=== PATIENT | male | born 1965 | race Caucasian/White ===

== ENCOUNTER 2020-09-06 09:50 | Outpatient (CLI) | payer MEDICARE, MEDICAID ==
[~2020-09-06 09:50] MED LIST: ACET-868 PO; ALPR0.25 PO; AMIN30LI2 PO; APIX2.5T PO; ASCO-495 PO; BISA10SU11 RC; CARV25TA2 PO; CHOL100040 PO; CLON0.5T4 PO; DILT30TA14 PO; DIPH25CA51 PO; DOCU-141 PO; FERR325T23 PO; FOLI0.8T2 PO; HYDR-4075 PO; HYDR-4384 PO; IPRA12.9 IH; LANS30CA56 PO; LEVA15HF4 IH; LEVE500T9 PO; MUPI22OI2 TP; ONDA4TAB5 PO; PARO40TA4 PO; SENN-261 PO; SEVE0.8P PO; ZINC1CAP2 PO; ZOLP5TAB2 PO
[2020-09-07] MEDS ORDERED: CLON0.5T4 PO (16:08)
[2020-09-13] MEDS ORDERED: PANT40TA2 PO (13:37)
[2020-09-13] MEDS ORDERED: APIX5TAB PO (13:37)
[2020-09-13] MEDS ORDERED: DILT240C88 PO (13:37)
== END 2020-09-06 23:59 | disposition home or self-care (01) ==
LOC: US 09:50
PROVIDERS: ATTEND Internal Medicine Nephrology
DX: Z75.3 Unavailability and inaccessibility of health-care facilities (principal)
CPT/HCPCS: 76942-TC

== ENCOUNTER 2020-09-07 14:35 | Inpatient (IN) | payer MEDICARE, OTHER ==
[~2020-09-07] VITALS: Ht 182.9 cm; Wt 114.3 kg
--- NOTE | 2020-09-07 14:40 | NUR ---
[facility] C/O SOB. SYNCOPE PER EMS WHILE BEING TRANPORTED. BG 85. ON VENT. SCHEDULED FOR DIALYSIS. PATIENT A/OX4, ABLE TO MOUTH WORDS, HAS A TRACHE ON A MECHANICAL VENT AND TOLERATING CURRENT VENT SETTINGS. NO S/SX OF RESPIRATORY DISTRESS NOTED. PATIENT CONNECTED TO THE MAINSPRING TORQUE TESTER. VITALS STABLE. DR. CHILEL AT BEDSIDE FOR EVALUATION.
--- NOTE | 2020-09-07 14:42 | NUR ---
IV LINE ESTABLISHED, BLOOD DRAWN AND SENT TO LAB.
--- NOTE | 2020-09-07 14:50 | NUR ---
CALLED SERENA BHAKTA TO FAX CLINICAL INFORMATION OF PATIENT TO US.
[2020-09-07 15:22] LABS: BASOPHILS # (AUTO) 0.1 /CMM (0.0-0.2); BASOPHILS % (AUTO) 0.8 % (0.0-2.0); EOSINOPHILS % (AUTO) 10.5 % (0.0-6.0); HEMATOCRIT 29 % (39-51); HEMOGLOBIN 9.4 g/dL (13.5-17.5); LYMPHOCYTES # (AUTO) 0.4 /CMM (0.8-4.8); LYMPHOCYTES % (AUTO) 3.6 % (20.0-44.0); MEAN CORPUSCULAR HGB CONC 33 g/dl (31.0-36.0); MEAN CORPUSCULAR VOLUME 92 fL (80-96); MONOCYTES # (AUTO) 0.7 /CMM (0.1-1.30); MONOCYTES % (AUTO) 6.3 % (2.0-12.0); NEUTROPHILS % (AUTO) 78.8 % (43.0-81.0); PLATELET COUNT (AUTO) 186 /CMM (150-450); RED BLOOD CELL COUNT(AUTO) 3.13 MIL/uL (4.5-6.0); WHITE BLOOD COUNT (AUTO) 11.4 K/uL (4.3-11.0)
--- NOTE | 2020-09-07 15:43 | NUR ---
PT REFUSING TO DO COVID SWAB. OFFERED 4X. STILL KEPT REFUSING. AWARE.
[2020-09-07 15:54] LABS: ALANINE AMINOTRANSFERASE 16 U/L (12-78); ALBUMIN 2.4 g/dL (3.4-5.0); ALKALINE PHOSPHATASE 127 U/L (46-116); ASPARTATE AMINOTRANSFERASE 12 U/L (15-37); BILIRUBIN,DIRECT 0.3 mg/dL (0.0-0.2); BILIRUBIN,TOTAL 0.6 mg/dL (0.2-1.0); CALCIUM, SERUM 8.6 mg/dL (8.5-10.1); CARBON DIOXIDE 25 mmol/L (21-32); CHLORIDE 102 mmol/L (98-107); CREATININE 6.6 mg/dL (0.6-1.3); GLUCOSE 96 mg/dL (74-106); SODIUM SERUM 137 mmol/L (136-145); UREA NITROGEN, BLOOD 70 mg/dL (7-18)
[2020-09-07 15:58] LABS: POTASSIUM 6.3 mmol/L (3.5-5.1)
[2020-09-07 16:00] LABS: D-DIMER 2.53 mg/L(FEU (0.17-0.50)
[2020-09-07] MEDS ORDERED: CLON0.5T4 PO (16:08)
--- NOTE | 2020-09-07 16:28 | NUR ---
COVID SWAB DONE SENT TO LAB
--- NOTE | 2020-09-07 16:56 | NUR ---
AWAITING CALL FROM ADMITING MD.
--- NOTE | 2020-09-07 17:16 | NUR ---
/ RANJANA MADE AWARE OF K+ LEVEL OF 6.3.
[2020-09-07] MEDS ORDERED: ALBUTEROL FS 2.5 MG/3 ML VIAL.NEB ONE (17:18)
--- NOTE | 2020-09-07 17:20 | NUR ---
CALLED RT FOR BREATHING TX.
--- NOTE | 2020-09-07 17:29 | NUR ---
BED [id number]
[2020-09-07] MEDS ORDERED: IV NS 0.9% 500 ML BAG IV ONE (17:30)
[2020-09-07] MEDS ORDERED: ALBUTEROL FS 2.5 MG/0.5 ML VIAL.NEB NEB ONE (17:30)
--- NOTE | 2020-09-07 17:40 | NUR ---
REPORT GIVEN TO SHRUTI HARPER FOR IRMA.
[2020-09-07] MEDS ORDERED: ONDANSETRON HCL/PF 4 MG/2 ML VIAL IVP PRN (18:30)
[2020-09-07] MEDS ORDERED: HYDROCODONE/APAP 5/325MG TABLET PO PRN (18:30)
[2020-09-07] MEDS ORDERED: ACETAMINOPHEN 325 MG TABLET PO PRN ×2 (18:30→19:00)
[2020-09-07] MEDS ORDERED: ZOLPIDEM TARTRATE 5 MG TABLET PO PRN ×2 (18:30→19:00)
[2020-09-07] MEDS ORDERED: MAGNESIUM HYDROXIDE 30 ML UDC PO PRN ×2 (18:30→19:00)
[2020-09-07] MEDS ORDERED: SODIUM POLYSTYRENE SULFONATE 15 G/60 ML BOTTLE PO ONE (18:30)
[2020-09-07] MEDS ORDERED: Z GUARD REMEDY 2 OZ OINT TP PRN ×2 (18:30→19:00)
[2020-09-07] MEDS ORDERED: MAG HYDROX/AL HYDROX/SIMETH 30 ML UDC PO PRN ×2 (18:30→19:00)
--- NOTE | 2020-09-07 18:51 | NUR ---
PATIENT TRANSFERRED TO ROOM 203 VIA ACLS PROTOCOL. NO DISTRESS NOTED.
--- NOTE | 2020-09-07 19:30 | NUR ---
TELE/RN NOTES RECEIVED PATIENT IN BED RESTING. PATIENT IS ALERT AND ORIENTED X 3. [facility] WE[facility]. PATIENT HAS IV ACCESS ON RIGHT AC #18G, SL, AND HD CATH ON RIGHT CHEST. PATIENT IN NO SIGNS OF DISTRESS. SAFETY MEASURES ARE IN PLACE, BED IS LOCKED AND PLACED IN THE LOW POSITION, SIDE RAILS UP X 2. CALL LIGHT WITHIN REACH. WILL CONTINUE TO MONITOR THROUGH OUT SHIFT.
[2020-09-07 20:00] VITALS: BP 139/78
[2020-09-07] MEDS: SODIUM POLYSTYRENE SULFONATE 15 G/60 ML BOTTLE PO ONE ×2 (20:00→20:48)
[2020-09-07] MEDS: HYDROCODONE/APAP 5/325MG TABLET PO PRN (20:49)
--- NOTE | 2020-09-07 22:00 | NUR ---
TELE/RN NOTES PATIENT REFUSED TO TAKE KAYEXALATE. RISK AND BENEFITS HAVE BEEN EXPLAINED TO THE PATIENT. PATIENT STILL REFUSED. PATIENT IS IN STABLE CONDITION.
--- NOTE | 2020-09-07 22:15 | NUR ---
TELE/RN NOTES JHONY VANN RETURNED CALL. NOTIFIED OF PATIENT HAVING DVT OF LEFT SUB CLAVIAN VEIN, ORDERED FOR LOVENOX MAX DOSE, PHARMACY TO DOSE. PATIENT IS REQUESTING FOR IV PAIN MEDS, NO NEW IV PAIN MEDS ORDERED AT THIS TIME. ALL ORDERS CARRIED OUT.
[2020-09-07] MEDS ORDERED: ENOXAPARIN SODIUM 120 MG/0.8 ML DISP.SYRIN SQ SCH (22:30)
[2020-09-07] MEDS ORDERED: ENOXAPARIN SODIUM 60 MG/0.6 ML DISP.SYRIN SQ ONE ×2 (23:04→23:30)
[2020-09-08] VITALS (10 sets, daily range): BP systolic 97–188; BP diastolic 60–96
[2020-09-08] MEDS ORDERED: hydrALAZINE HCL 10 MG TABLET PO PRN (00:30)
[2020-09-08] MEDS ORDERED: diphenhydrAMINE HCL 25 MG CAPSULE PO PRN (00:30)
[2020-09-08] MEDS: DILTIAZEM HCL 30 MG TABLET PO SCH ×5 (05:00→21:10)
--- NOTE | 2020-09-08 05:45 | NUR ---
TELE/RN NOTES PATIENT STATED HE NEEDS PMV VALUE, DOES NOT HAVE HIS WITH HIM. NOTIFIES RT OF PMV VALUE. RT WILL PLACE ORDER AND GET VALUE WITH AVAILABLE IN THE MORNING.
--- NOTE | 2020-09-08 06:45 | NUR ---
TELE/RN CLOSING NOTES PATIENT IS IN BED RESTING. PATIENT IS ALERT AND ORIENTED X3-4. TELE READING AFIB UNCONTROLLED 126. PATIENT ON TRACH VENT, SHRLY. #6, AC 14, TIDAL 600, PEEP 5, FIO2 40%. PATIENT IS IN NO SIGNS OF DISTRESS. PATIENT HAS IV ACCESS ON AC #18G SL, INTACT, SL. ALL NEEDS HAVE BEEN MET DURING SHIFT. PATIENT REFUSED FULL SKIN BODY ASSESSMENT, AND REFUSED PHOTOS, ALL RISK AND BENEFITS HAVE BEEN EXPLAINED. PATIENT REFUSED BED BATH, AND LINEN CHANGE BY MULTIPLE NURSES. SAFETY MEASURES ARE IN PLACE, BED IS LOCKED AND PLACED IN THE LOW POSITION, SIDE RAILS UP X 2. CALL LIGHT IS WITHIN REACH. WILL ENDORSE CARE TO DAY SHIFT NURSE.
[2020-09-08] MEDS ORDERED: ALBUTEROL SULFATE 8 GM HFA.AER.AD IH PRN (07:30)
[2020-09-08] MEDS ORDERED: IPRATROPIUM BROMIDE 14 GM INHALER (or 12.9 GM) INH PRN (07:30)
[2020-09-08] MEDS ORDERED: PANTOPRAZOLE 40 MG TABLET.DR PO SCH ×2 (07:30)
--- NOTE | 2020-09-08 07:34 | NUR ---
QUICK TECHNICIAN NOTES PATIENT RECEIVED IN BED, RESTING COMFORTABLY. ALERT AND ORIENTED X 3. ON MARINE EQUIPMENT PRESERVATION INSPECTOR, A FLUTTER 100'S. TRACH IN PLACE, TOLERATING SETTINGS WELL, NO COMPLAINTS OF SOB, AND WITH EVEN NON-LABORED BREATHING. IV ACCESS INTACT AND PATENT. PATIENT REFUSING SKIN ASSESSMENT ENDORSE BY NIGHTSHIFT. WILL ATTEMPT SKIN ASSESSMENT. ENDORSE BY NIGHTSHIFT PATIENT REFUSED KAYEXALATE, PO. RE EDUCATED THE PATIENT THE IMPORTANCE PATIENT KEPT REFUSING. ISOLATION PRECAUTIONS IMPLEMENTED. SAFETY PRECAUTIONS IMPLEMENTED WITH BED LOCKED, BED IN THE LOWEST POSITIONS, BILATERAL SIDE RAILS UP, BED ALARM ON, AND CALL LIGHT WITHIN EASY REACH. WILL CONTINUE TO MONITOR PATIENT.
[2020-09-08] MEDS: CARVEDILOL 12.5 MG TABLET PO SCH ×3 (09:00→21:09)
[2020-09-08] MEDS ORDERED: PROSTAT (PYXIS) 30 ML UDC PO SCH (09:00)
[2020-09-08] MEDS ORDERED: APIXABAN 2.5 MG TABLET PO SCH (09:00)
--- NOTE | 2020-09-08 09:45 | NUR ---
SCHOOL BUS ATTENDANT NOTES DID A SWALLOW EVALUATION, ASPIRATION PRECAUTIONS IMPLEMENTED WITH RT AT BEDSIDE, AND PATIENT HAD NO DISCOMFORT OR TROUBLE SWALLOWING, INFORMED DR. KAMARA, HOSPITALIST AND ORDERED TO START PATIENT ON DIET. WILL CARRY OUT ORDER AND CONTINUE TO MONITOR PATIENT.
[2020-09-08] MEDS: CHOLECALCIFEROL 1,000 UNIT TABLET (VIT D3) PO SCH (09:46)
[2020-09-08] MEDS: ASCORBIC ACID 500 MG TABLET PO SCH ×2 (09:46→17:00)
[2020-09-08] MEDS: VIT B CMPLX 3/FA/VIT C/BIOTIN 1 TAB TABLET PO SCH (09:46)
[2020-09-08] MEDS: PANTOPRAZOLE 40 MG TABLET.DR PO SCH (09:46)
[2020-09-08] MEDS: PAROXETINE HCL 20 MG TABLET PO SCH (09:47)
[2020-09-08] MEDS: DOCUSATE SODIUM 100 MG CAPSULE PO SCH (09:47)
[2020-09-08] MEDS: LEVETIRACETAM (250 MG) 250 MG TABLET PO SCH ×3 (09:47→21:09)
[2020-09-08] MEDS: SEVELAMER CARBONATE 800 MG POWD.PACK PO SCH ×4 (09:47→17:37)
[2020-09-08] MEDS: clonazePAM 0.5 MG TABLET PO SCH ×3 (09:47→21:09)
--- NOTE | 2020-09-08 09:55 | NUR ---
SPORTS MANAGEMENT PROFESSOR NOTES HELD AND NON-ADMINISTERED BLOOD PRESSURE MEDICATION, DUE TO PATIENT BEING SCHEDULED FOR HEMODIALYSIS. WILL CONTINUE TO MONITOR PATIENT.
[2020-09-08] MEDS: ALBUTEROL SULFATE 8 GM HFA.AER.AD IH SCH ×2 (11:25→11:30)
[2020-09-08] MEDS: IPRATROPIUM BROMIDE 14 GM INHALER (or 12.9 GM) INH SCH ×2 (11:25→11:30)
[2020-09-08 11:36] LABS: BASOPHILS # (AUTO) 0.1 /CMM (0.0-0.2); BASOPHILS % (AUTO) 0.7 % (0.0-2.0); EOSINOPHILS % (AUTO) 15.5 % (0.0-6.0); HEMATOCRIT 25 % (39-51); LYMPHOCYTES # (AUTO) 0.4 /CMM (0.8-4.8); LYMPHOCYTES % (AUTO) 4.7 % (20.0-44.0); MEAN CORPUSCULAR HGB CONC 33 g/dl (31.0-36.0); MEAN CORPUSCULAR VOLUME 94 fL (80-96); MONOCYTES # (AUTO) 0.5 /CMM (0.1-1.30); NEUTROPHILS # (AUTO) 6.3 /CMM (1.8-8.9); NEUTROPHILS % (AUTO) 73.1 % (43.0-81.0); PLATELET COUNT (AUTO) 153 /CMM (150-450); RED BLOOD CELL COUNT(AUTO) 2.63 MIL/uL (4.5-6.0); WHITE BLOOD COUNT (AUTO) 8.7 K/uL (4.3-11.0)
[2020-09-08 11:42] LABS: CALCIUM, SERUM 7.9 mg/dL (8.5-10.1); CREATININE 6.8 mg/dL (0.6-1.3); POTASSIUM 5.9 mmol/L (3.5-5.1)
[2020-09-08 11:48] LABS: ALBUMIN 2.1 g/dL (3.4-5.0); BILIRUBIN,TOTAL 0.5 mg/dL (0.2-1.0); TOTAL PROTEIN, SERUM 5.9 g/dL (6.4-8.2)
[2020-09-08] MEDS ORDERED: EPOETIN ALFA (10,000 UNIT) 10,000 UNIT/ML VIAL IV ONE (12:30)
[2020-09-08] MEDS: HYDROCODONE/APAP 5/325MG TABLET PO PRN (13:25)
--- NOTE | 2020-09-08 13:32 | NUR ---
CLINICAL CYTOGENETICS DIRECTOR NOTES PATIENT REFUSED SKIN ASSESSMENT AND REFUSING TO BE CLEAN, STATING HE JUST WANTS TO BE LEFT TO REST. WILL CONTINUE TO MONITOR.
--- NOTE | 2020-09-08 13:40 | NUR ---
FIELDWORK COORDINATOR NOTES PATIENT STATING 9/10 CHRONIC BACK PAIN, REPOSITIONED AND PATIENT REQUESTING PAIN MEDICATION. OFFERED PRN NORCO, 5-325mg PO, TOOK OUT MEDICATION FROM PYXIS, AND CRUSHED MEDICATION, WENT TO PATIENT ROOM AND PATIENT REFUSING STATING HE WANTS DILAUDID AND THAT'S THE ONLY THING HE TAKES FOR PAIN. INFORMED DR. KAMARA, STATES NORCO 5-325mg PRN IS ORDERED AND WILL CONSULT PAIN MANAGEMENT DRDylan HAD ANOTHER RN WITNESS WASTING NORCO 5-325mg. AT THIS TIME WILL CONTINUE TO MONITOR PATIENT.
--- NOTE | 2020-09-08 14:00 | NUR ---
VP GENETIC NOTES PATIENT REFUSED CARDIZEM 90mg PO and RENVELA 2,400mg PO, EXPLAINED TO THE PATIENT THE RISKS AND BENEFITS OF NOT TAKING MEDICATIONS AND EDUCATED THE PATIENT MULTIPLE TIMES, PATIENT KEPT REFUSING AND USING PROFANITY STATING HE DOES NOT WANT TO TAKE ANYTHING. WILL CONTINUE TO MONITOR PATIENT.
--- NOTE | 2020-09-08 14:30 | NUR ---
PIPELINE DISPATCHER NOTES TRY TO CLEAN PATIENT AGAIN WITH 2 CNAS, AND PATIENT KEPT CURSING STATING HE WANTS TO BE LEFT ALONE TO REST AND NOT TO BE CLEAN.
--- NOTE | 2020-09-08 15:45 | NUR ---
PAYROLL OFFICER NOTES TRANSFERRED PATIENT TO [facility] TO CLEAN UNIT ROOM 313. PATIENT TRANSFERRED VIA BED, ALERT AND ORIENTED X 3. TOLERATING MECHANICAL SETTINGS, WITH NO SIGNS OF RESPIRATORY DISTRESS AND NO SOB NOTED. GAVE REPORT TO MEREDITH LOPEZ TO CONTINUE PLAN OF CARE.
[2020-09-08] MEDS: ACETYLCYSTEINE 10% SOLN 400 MG/4 ML VIAL NEB SCH ×2 (15:58→23:17)
[2020-09-08] MEDS: IPRATROPIUM NEB FS 0.5 MG/2.5 ML AMPUL.NEB NEB SCH ×3 (15:58→23:17)
[2020-09-08] MEDS ORDERED: HEPARIN INFUSION/D5W 500 ML IV PRN (16:00)
--- NOTE | 2020-09-08 16:00 | NUR ---
rn notes received pt awake and alert; denies pain or any discomfort . trach in place; vent settings well tolerated. pt refused care at this time. explained plan of care, safety ensured
--- NOTE | 2020-09-08 16:45 | NUR ---
rn notes pt awake in bed. heparin order explained to the pt as ordered by Dr Jensen; pt said "dont give me anything". Dr Jensen aware re pts noncompliance. teachings enforced but pt angrily refused. refused lab draw for PTT and troponin.
[2020-09-08] MEDS: PROSOURCE / PROSTAT (PYXIS) 30 ML UDC PO SCH (17:00)
--- NOTE | 2020-09-08 19:30 | NUR ---
RN OPENING NOTES Received patient a/o x4, awake on bed, capable of verbal communication. Explained to patient he is due for Heparin drip and due to PTT. Informed patient of the risk of bleeding and importance of doing PTT. Pt verbalized understanding but insisted to refused the medication and blood draw. Will reoffer again later. Vent settings noted, pt tolerating well, no SOB/respiratory distress noted. Kept on bed clean, dry and comfortable. On fall and aspiration precautions. Will continue to monitor accordingly.
--- NOTE | 2020-09-08 19:30 | NUR ---
rn closing notes pt awake , no distress. heparin order endorsed to next shift rn, pt still refusing. safety ensured. endorsed in stable condition
--- NOTE | 2020-09-08 19:49 | NUR ---
IN-LINE TREATMENT UNABLE TO GIVE DUE TO HR ABOVE NORMAL LIMITS; RN NOTIFIED. Addendum: 09/08/20 at 1950 by LENA SANTIAGO RT Amended: Links added.
--- NOTE | 2020-09-08 20:30 | NUR ---
RN NOTES HR noted 130s. A-fib on monitor. Offered Cardizem at this time, explained the medication indication. Pt verbalized understanding but wants to take meds at bedtime. Patient agreed to take meds 2130. Will continue to monitor.
[2020-09-08] MEDS: SENNOSIDES 8.6 MG TABLET PO SCH ×2 (21:10→22:00)
--- NOTE | 2020-09-08 21:34 | NUR ---
RN NOTES Pt asleep, easily awaken on bed. Informed patient it's time for medications as agreed upon earlier. Per patient "not right now." Explained and re-offered Heparin, patient refused. Afib on monitor, HR 131. Will continue to monitor.
--- NOTE | 2020-09-08 22:26 | NUR ---
RN NOTES Offered warm blanket to patient. Advised for repositioning, pt refused. Lowered HOB per patient request. Pt still refusing any meds at this time.
--- NOTE | 2020-09-08 23:27 | NUR ---
RN NOTES Spoke to pt's brother. Update given. Brother aware of pt's rude behavior and refusing all medications. Per brother he will talk to the patient.
[2020-09-09] MEDS: IPRATROPIUM NEB FS 0.5 MG/2.5 ML AMPUL.NEB NEB SCH ×6 (03:11→23:30)
[2020-09-09 04:00] VITALS: BP 153/90
[2020-09-09] MEDS: DILTIAZEM HCL 30 MG TABLET PO SCH (04:13)
[2020-09-09 04:46] LABS: BASOPHILS # (AUTO) 0.1 /CMM (0.0-0.2); BASOPHILS % (AUTO) 1.3 % (0.0-2.0); EOSINOPHILS % (AUTO) 19.2 % (0.0-6.0); HEMATOCRIT 27 % (39-51); HEMOGLOBIN 8.8 g/dL (13.5-17.5); LYMPHOCYTES # (AUTO) 0.3 /CMM (0.8-4.8); LYMPHOCYTES % (AUTO) 3.3 % (20.0-44.0); MEAN CORPUSCULAR HGB CONC 33 g/dl (31.0-36.0); MEAN CORPUSCULAR VOLUME 93 fL (80-96); MONOCYTES # (AUTO) 0.5 /CMM (0.1-1.30); MONOCYTES % (AUTO) 5.7 % (2.0-12.0); NEUTROPHILS # (AUTO) 5.8 /CMM (1.8-8.9); NEUTROPHILS % (AUTO) 70.5 % (43.0-81.0); PLATELET COUNT (AUTO) 180 /CMM (150-450); RED BLOOD CELL COUNT(AUTO) 2.87 MIL/uL (4.5-6.0); WHITE BLOOD COUNT (AUTO) 8.2 K/uL (4.3-11.0)
--- NOTE | 2020-09-09 06:04 | NUR ---
PATIENT RECEIVED ON TRACH TO VENT WITH SETTINGS OF AC 14, 600 Vt, 40%, +5, ALERT, ORIENTED, AND STABLE WITH NO DISTRESS/SOB NOTED. SUCTIONED WITH LAVAGE FOR MINIMAL, THICK, YELLOW-CREAM SECRETIONS. UNABLE TO GIVE IN-LINE TREATMENTS DUE TO HR ABOVE NORMAL LIMITS. AMBU BAG AT BEDSIDE. VENT AND PULSE OXIMETER ALARMS AUDIBLE AND VISIBLE. Addendum: 09/09/20 at 0606 by LENA SANTIAGO RT Amended: Links added.
--- NOTE | 2020-09-09 07:21 | NUR ---
RN CLOSING NOTES Pt noted controlled A-Fib on monitor. With current vent settings noted, no respiratory distress noted. Started on Heparin drip 1800unit/hr per protocol. Pt took 5am ordered meds. All nursing needs attended. Kept on bed clean, dry and comfortable. Endorsed.
[2020-09-09] MEDS: ACETYLCYSTEINE 10% SOLN 400 MG/4 ML VIAL NEB SCH ×3 (07:53→23:30)
[2020-09-09 08:00] VITALS: BP 158/82
--- NOTE | 2020-09-09 08:00 | NUR ---
RN NOTES MISSION ANALYST NOTES RECEIVED PATIENT IN BED, A/OX3 , ABLE TO TALK, AND EAT, ON GRE TUTOR, A FLUTTER 108'S. TRACH IN PLACE, TOLERATING SETTINGS WELL, NO COMPLAINTS OF SOB, NON-LABORED BREATHING. IV ACCESS INTACT AND PATENT ON RIGHT ACAREA PATIENT GETTING HEPARIN DRIP 1800U. SKIN ASSESSMENT DONE EDEMA ON LEFT ARM, ELEVATED WITH PILLOW, AND DEPENDENT UPPER THIGHS, AND SACRAL AREAS EDEMA, TOTAL ASSIST TURN AND REPOSTIONQ2 HR. DRY SCALY SKIN GENERALIZED, DISTENDED ABDOMEN. ACTIVE BOWEL SOUNDS FOUR QUADRANT OF ABDOMEN. NO BOWEL MOVEMENT. PATIENT REFUSED PAIN, ADMINISTERED SCHEDULED MEDICATION. RIGHT UPPERCHEST HS CATHETER INTACT. SAFETY PRECAUTIONS IMPLEMENTED WITH BED LOCKED, BED IN THE LOWEST POSITIONS, BILATERAL SIDE RAILS UP, BED ALARM ON, AND CALL LIGHT WITHIN EASY REACH. WILL CONTINUE TO MONITOR PATIENT.
--- NOTE | 2020-09-09 08:40 | NUR ---
RN NOTES PATIENT GETTING HD AT THIS TIME. V/S STABLE. WILL MONITORING.
[2020-09-09] MEDS: DOCUSATE SODIUM 100 MG CAPSULE PO SCH ×2 (09:00→10:04)
[2020-09-09] MEDS: PROSOURCE / PROSTAT (PYXIS) 30 ML UDC PO SCH ×2 (09:00→17:00)
[2020-09-09] MEDS: LEVETIRACETAM (250 MG) 250 MG TABLET PO SCH ×2 (10:02→21:05)
[2020-09-09] MEDS: SEVELAMER CARBONATE 800 MG POWD.PACK PO SCH ×4 (10:02→18:00)
[2020-09-09] MEDS: VIT B CMPLX 3/FA/VIT C/BIOTIN 1 TAB TABLET PO SCH (10:03)
[2020-09-09] MEDS: CARVEDILOL 12.5 MG TABLET PO SCH ×2 (10:03→21:06)
[2020-09-09] MEDS: clonazePAM 0.5 MG TABLET PO SCH ×2 (10:04→21:05)
[2020-09-09] MEDS: PAROXETINE HCL 20 MG TABLET PO SCH (10:04)
[2020-09-09] MEDS: CHOLECALCIFEROL 1,000 UNIT TABLET (VIT D3) PO SCH (10:04)
[2020-09-09] MEDS: ASCORBIC ACID 500 MG TABLET PO SCH ×2 (10:04→18:19)
[2020-09-09] MEDS: PANTOPRAZOLE 40 MG TABLET.DR PO SCH (10:05)
--- NOTE | 2020-09-09 10:08 | NUR ---
RN NOTES FINISHED HD AT THIS TIME, OUTPUT WAS 3000ML, ADMINISTERED SCHEDULED MEDICATION, INFUSING HEPARIN DRIP 1800.
[2020-09-09 12:00] VITALS: BP 137/80
--- NOTE | 2020-09-09 12:06 | NUR ---
RN NOTES SEEN PATIENT BY HOSPITALIST, EXPLAINED PATIENT NEED PTT, BECAUSE OF HAS DVT, AND NEED MEDICATION. PATIENT AGREES AFTER TAKING MOTHER FOR BLOOD WITHDRAW FROM LEG. CALLED LABORATORY FOR BLOOD WITHDRAW.
--- NOTE | 2020-09-09 12:26 | NUR ---
Please call Radiology ext. [phone] Chest W/IV Contrast before Dialysis is performed.
[2020-09-09] MEDS: DILTIAZEM HCL CD 240 MG PO SCH (13:44)
--- NOTE | 2020-09-09 13:58 | NUR ---
rn notes seen patient by vascular Md Dr. Brand, patient will getting Eliquis instead of heparin iv drip. will continued monitoring.
[2020-09-09] MEDS: APIXABAN 5 MG TABLET PO SCH ×2 (14:36→18:21)
--- NOTE | 2020-09-09 15:08 | NUR ---
PER RN TO DO CT SCAN TOMORROW 09/10/20 IN THE MORNING AT 0800 BEFORE PT SCHEDULED DIALYSIS
[2020-09-09 16:00] VITALS: BP 130/77
--- NOTE | 2020-09-09 18:00 | NUR ---
RN NOTES PATIENT STABLE REFUSED TURN AND REPOSITIONING, PATIENT HAS OPEN WOUND ON BILATERAL BUTTOCKS, APPLIED Z-GUARD, AND MEPILEX, PICTURE TAKEN. EDUCATED PATIENT ABOUT WOUND, AND RISKS. PATIENT STATE "I DO NOT CARE". WOUND CONSULT TRIGGERED, REFUSED PAIN. DUE MEDICATION ADMINISTERED. CALL LIGHT WITHIN TO REACH. ELEVATED LEFT ARM,USING PILLOW, CALL LIGHT WITHIN TO REACH. ENDORSED ONCOMING NURSE FOLLOW PLAN OF CARE.
--- NOTE | 2020-09-09 19:34 | NUR ---
STILE RIPSAW OPERATOR OPEN NOTES PT IS WATCHING TV IN BED. A[facility]O X3. [facility], NO SOB/ ACUTE RESPIRATORY DISTRESS NOTED. PT SUCTIONED. IV IN R AC #18G IS PATENT AND INTACT. PT DENIES ANY PAIN AT THE MOMENT. BED IS IN LOWEST LOCKED POSITION WITH SIDE RAILS UP X3, SEMI FOWLERS. CALL LIGHT IS WITHIN REACH. WILL CONTINUE TO MONITOR.
[2020-09-09 20:00] VITALS: BP 125/70
[2020-09-09] MEDS: SENNOSIDES 8.6 MG TABLET PO SCH (21:05)
--- NOTE | 2020-09-09 22:32 | NUR ---
RN CARDIAC NOTES PT REFUSES TO HAVE PICTURES TAKEN OF WOUNDS. EXPLAINED THE BENEFITS HOWEVER PT STILL REFUSES STATING, "I DON'T WANT TO HAVE THEM TAKEN."
--- NOTE | 2020-09-09 23:00 | NUR ---
CHIEF LEARNING OFFICER NOTES PT SIGNED CONSENT FORM FOR CT SCAN ON CHEST WITH CONTRAST. PT ALSO STATED HE IS NOT ALLERGIC TO SHELLFISH/ IODINE.
[2020-09-10 04:00] VITALS: BP 129/69
[2020-09-10] MEDS: IPRATROPIUM NEB FS 0.5 MG/2.5 ML AMPUL.NEB NEB SCH ×6 (04:09→23:47)
--- NOTE | 2020-09-10 05:46 | NUR ---
REGISTRATION OFFICER NOTES PT REFUSES TO BE CHANGED. STATES THAT HE WILL LET US KNOW IF/ WHEN HE'S READY TO HAVE A NEW GOWN/ NEW SHEETS.
[2020-09-10 06:29] LABS: BASOPHILS # (AUTO) 0.1 /CMM (0.0-0.2); EOSINOPHILS % (AUTO) 12.8 % (0.0-6.0); HEMATOCRIT 23 % (39-51); HEMOGLOBIN 7.7 g/dL (13.5-17.5); LYMPHOCYTES # (AUTO) 0.4 /CMM (0.8-4.8); LYMPHOCYTES % (AUTO) 4.4 % (20.0-44.0); MEAN CORPUSCULAR HGB CONC 33 g/dl (31.0-36.0); MEAN CORPUSCULAR VOLUME 93 fL (80-96); MONOCYTES # (AUTO) 0.6 /CMM (0.1-1.30); MONOCYTES % (AUTO) 6.2 % (2.0-12.0); NEUTROPHILS % (AUTO) 75.6 % (43.0-81.0); PLATELET COUNT (AUTO) 189 /CMM (150-450); RED BLOOD CELL COUNT(AUTO) 2.49 MIL/uL (4.5-6.0); WHITE BLOOD COUNT (AUTO) 9.2 K/uL (4.3-11.0)
[2020-09-10 06:46] LABS: CALCIUM, SERUM 8.2 mg/dL (8.5-10.1); CREATININE 6.4 mg/dL (0.6-1.3); MAGNESIUM 2.2 mg/dL (1.8-2.4); PHOSPHORUS 7.4 mg/dL (2.5-4.9); POTASSIUM 5.3 mmol/L (3.5-5.1)
[2020-09-10 06:52] LABS: IRON, SERUM 96 ug/dl (50-175); TOTAL IRON BINDING CAPACITY 123 ug/dl (250-450)
--- NOTE | 2020-09-10 06:54 | NUR ---
PRODUCTION SUPERVISOR OFF SHIFT CLOSE NOTES PATIENT IS WATCHING TV IN BED. A/O X3-4. ON [facility] VENT TOLERATING WELL, NO SOB/ ACUTE RESPIRATORY DISTRESS NOTED. VENT SETTINGS: AC 14, TV 600, FiO2 40%, PEEP 5, SHILEY #6. TELE MONITOR READING A FLUTTER, 121. IV IN R AC #18G IS PATENT AND INTACT. PT DENIES ANY PAIN AT THE MOMENT. ALL DUE MEDS GIVEN. CONSENT SIGNED. BED IS IN LOWEST LOCKED POSITION WITH SIDE RAILS UP X3, SEMI FOWLERS. CALL LIGHT IS WITHIN REACH. WILL ENDORSE TO AM NURSE.
[2020-09-10 07:30] LABS: FERRITIN 1488 ng/mL (8-388)
[2020-09-10] MEDS: ACETYLCYSTEINE 10% SOLN 400 MG/4 ML VIAL NEB SCH ×3 (07:45→23:47)
[2020-09-10 08:00] VITALS: BP 138/68
[2020-09-10 08:07] LABS: IMMUNOGLOBULIN A, SERUM 342 mg/dL (90-386); IMMUNOGLOBULIN G, SERUM 1445 mg/dL (603-1613); IMMUNOGLOBULIN M, SERUM 85 mg/dL (20-172)
[2020-09-10] MEDS ORDERED: CT SWABBABLE VALVE TRANS SET 1 EA INFUS.SET MC ONE (08:22)
[2020-09-10] MEDS ORDERED: IOHEXOL-300 100 ML VIAL IV ONE (08:22)
[2020-09-10] MEDS ORDERED: IV NS 0.9% 250 ML IV ONE (08:22)
--- NOTE | 2020-09-10 08:39 | NUR ---
WHITE WASHER PILER NOTES RECEIVED PATIENT IN BED JUST CAME BACK FROM CT , HEAD OF BED ELEVATED , ON MECHANICAL VENTILATOR SET ON ORDERED SETTING, PATIENT TOLERATING WELL ALERT ORIENTED X 3. NO ACUTE DISTRESS NOTED. BREATHING UNLABORED. NO SOB NOTED. IV ACCESS PATENT AND INTACT, NO REDNESS NO SWELLING , NO BLEEDING NOTED. DIALYSIS ACCESS INTACT WITH DRESSING. SAFETY MEASURES IN PLACE. CALL LIGHT WITHIN REACH. WILL CONTINUE TO MONITOR ACCORDINGLY.
[2020-09-10] MEDS: PANTOPRAZOLE 40 MG TABLET.DR PO SCH (08:53)
[2020-09-10] MEDS: DOCUSATE SODIUM 100 MG CAPSULE PO SCH (09:00)
[2020-09-10] MEDS: SEVELAMER CARBONATE 800 MG POWD.PACK PO SCH ×3 (09:19→18:00)
[2020-09-10] MEDS: LEVETIRACETAM (250 MG) 250 MG TABLET PO SCH ×2 (09:47→20:20)
[2020-09-10] MEDS: DILTIAZEM HCL CD 240 MG PO SCH (09:47)
[2020-09-10] MEDS: CARVEDILOL 12.5 MG TABLET PO SCH ×2 (09:47→20:20)
[2020-09-10] MEDS: clonazePAM 0.5 MG TABLET PO SCH ×2 (09:48→21:33)
[2020-09-10] MEDS: VIT B CMPLX 3/FA/VIT C/BIOTIN 1 TAB TABLET PO SCH (09:48)
[2020-09-10] MEDS: ASCORBIC ACID 500 MG TABLET PO SCH ×2 (09:48→17:12)
[2020-09-10] MEDS: PAROXETINE HCL 20 MG TABLET PO SCH (09:48)
[2020-09-10] MEDS: PROSOURCE / PROSTAT (PYXIS) 30 ML UDC PO SCH ×2 (09:49→17:13)
[2020-09-10] MEDS: CHOLECALCIFEROL 1,000 UNIT TABLET (VIT D3) PO SCH (09:55)
[2020-09-10] MEDS: APIXABAN 5 MG TABLET PO SCH ×2 (09:59→17:00)
--- NOTE | 2020-09-10 09:59 | NUR ---
WEAPONS SPECIALIST NOTES HELD ELIQUIS DUE TO HGB 7.7, NOTIFIED DR HIRSCH MADE AWARE. SUPERVISOR DAIRY SANITATION NANETTE FROM DR HUANG OFFICE PRESENT ON THE FLOOR MADE AWARE ALSO SHE SAID SHE WILL ORDER STOOL OB AND LOOK INTO PATIENT CHART. PATIENT WAS NON COMPLIANT WITH HEPARIN DRIP DESPITE OF EXPLANATION OF RISKS AND BENEFITS, HE REFUSED TO BE ON HEPARIN DRIP.
--- NOTE | 2020-09-10 10:47 | NUR ---
TELEMETRY PATIENT SEEN AND EVALUATED BY DR HIRSCH AND ASHLEY PERLA FROM DR HUANG, PATIENT REFUSED HERAPIN DRIP DESPITE OF EXPLANATION OF RISKS AND BENEFITS.
--- NOTE | 2020-09-10 11:53 | NUR ---
WOUND CARE CONSULT: PT ADAMANTLY REFUSED SKIN ASSESSMENT. REVIEWED CHART, NURSING DOCUMENTATION AND PHOTOS WHICH INDICATE LEFT ARM WEEPING EDEMA, SACRAL SCARRING, RT BUTTOCK WOUND (AT LEAST PARTIAL THICKNESS) AND DISCOLORATION/DRY SCABS TO LOWER LEGS, PRESENT ON ADMISSION. RECOMMENDATIONS MADE FOR SKIN PROTECTION AND WOUND CARE. DISCUSSED WITH NURSING STAFF. MD IN AGREEMENT WITH PLAN OF CARE.
[2020-09-10 12:00] VITALS: BP 150/90
[2020-09-10] MEDS ORDERED: HYDROGEL DRESSING 90 GM TUBE TP PRN (12:00)
--- NOTE | 2020-09-10 12:10 | NUR ---
INCOME TAX ADVISOR NOTES DIALYSIS STARTED BY DIALYSIS NURSE ROSA, VITALS SIGNS STABLE WITHIN NORMAL LIMITS. ALERT ORIENTED X 3. NO ACUTE DISTRESS NOTED. BREATHING UNLABORED. WILL CONTINUE TO MONITOR.
--- NOTE | 2020-09-10 13:45 | NUR ---
DIGITAL WATCH ASSEMBLER NOTES DIALYSIS DONE BY DIALYSIS NURSE ROSA, 2 LITERS OUT. VITALS SIGNS STABLE WITHIN NORMAL LIMITS. ALERT ORIENTED X 3. NO ACUTE DISTRESS NOTED. BREATHING UNLABORED. WILL CONTINUE TO MONITOR.
[2020-09-10] MEDS: HYDROGEL DRESSING 90 GM TUBE TP SCH (14:31)
[2020-09-10 16:00] VITALS: BP 115/56
[2020-09-10 16:25] LABS: *SPE A/G RATIO 0.8 (0.7-1.7); *SPE ALBUMIN 2.7 g/dL (2.9-4.4); *SPE ALPHA-1-GLOBULIN 0.3 g/dL (0.0-0.4); *SPE ALPHA-2-GLOBULIN 0.5 g/dL (0.4-1.0); *SPE BETA GLOBULIN 0.8 g/dL (0.7-1.3); *SPE GLOBULIN, TOTAL 3.2 g/dL (2.2-3.9); *SPE M-SPIKE Not Observed g/dL (Not Observed); *SPEGAMMA GLOBULIN 1.5 g/dL (0.4-1.8)
--- NOTE | 2020-09-10 18:17 | NUR ---
BRIDGE OPENER NOTES PATIENT REFUSED TO TAKE RENVELA DESPITE OF EXPLANATION OF RISKS AND BENEFITS, VERBALIZED UNDERSTANDING
--- NOTE | 2020-09-10 19:00 | NUR ---
INTEGRATION MANAGER NOTES PATIENT IN BED ALERT ORIENTED X 3. HEAD OF BED ELEVATED , ON MECHANICAL VENTILATOR SET ON ORDERED SETTING, PATIENT TOLERATING WELL. NO ACUTE DISTRESS NOTED. BREATHING UNLABORED. NO SOB NOTED. IV ACCESS PATENT AND INTACT, NO REDNESS NO SWELLING , NO BLEEDING NOTED. DIALYSIS ACCESS INTACT WITH DRESSING.. PATIENT REFUSED TO EAT LUNCH FROM LUNCH TRAY AND SAID HE ORDERED DOMINOS, REFUSED CARE, REFUSED RENVELA IN THE AFTERNOON, RISKS AND AND BENEFITS EXPLAINED TO THE PATIENT BUT STRONGLY REFUSING AND SAID HE WANTS TO EAT WHAT HE ORDERED , DON'T WANT ADLS CARE OR BE CHANGED. SAFETY MEASURES IN PLACE. CALL LIGHT WITHIN REACH. WILL CONTINUE TO MONITOR ACCORDINGLY.
--- NOTE | 2020-09-10 19:30 | NUR ---
RURAL CARRIER OPENING NOTE RECEIVED PATIENT IN BED. A/OX3. ON MECHANICAL VENTILATOR: TWILA #6, AC 14, TV 600 FIO2 40% PEEP 5. IN NO RESP DISTRESS. C/O BACK PAIN, OFFERED PAIN MEDICATION, PATIENT REFUSED. EXTERNAL TELE MONITOR READS AFLUTTER 140S. IN NO APPARENT DISTRESS. WILL INFORM MD ABOUT RHYTHM. BED IS LOW AND LOCKED, HOB ELEVATED IN SEMI FOWLERS, SIDE RIALS UP X2. CALL LIGHT WITHIN REACH. WILL CONTINUE TO MONITOR.
[2020-09-10 20:00] VITALS: BP 131/70
--- NOTE | 2020-09-10 20:09 | NUR ---
TRAFFIC SIGNAL TECHNICIAN NOTE CALLED DR. BOOKER TO INFORM THAT PATIENT IS 140'S AFLUTTER SINCE 1200. ADMISSION HR IS 110'S A FLUTTER. ALSO INFORMED THAT PATIENT IS ABOUT TO RECEIVE COREG 37.5 MG SCHEDULED. MD STATED GIVE THE COREG AND WATCH THE HR. ANYTHING 130-140S ISN'T OK. ORDER READ BACK, NOTED AND CARRIED OUT. WILL CONTINUE TO MONITOR.
--- NOTE | 2020-09-10 20:35 | NUR ---
telephone sales representative note informed patient his temperature is 99.1 if he would like any tylenol. patient stated no. asked if he would like AC turned on, patient stated no. will continue to monitor.
[2020-09-10] MEDS: SENNOSIDES 8.6 MG TABLET PO SCH (21:33)
[2020-09-11] VITALS: BP 136/69
--- NOTE | 2020-09-11 00:24 | NUR ---
telegraph office telephone clerk note informed dr. mancilla patients hr is still ranging from 120's to 140s. telephone order cardizem 10mg iv push one time now. order read back, noted and carried out. will continue to monitor.
[2020-09-11] MEDS ORDERED: DILTIAZEM HCL 25 MG IV IVP ONE (01:00)
--- NOTE | 2020-09-11 02:03 | NUR ---
television tube inspector note informed dr. mancilla that patients hr is now in the 110s. also informed MD that patient is complaining of pain 10/10 in back. does not want the norco 5 as prescribed PRN d/t doesnt want to become constipated, request iv medication. MD stated there will be same outcome with iv medication and there is no indication for iv medication. patient also takes norco 5 at assisted. will inform patient. informed patient. offered ice pack or heating pack for pain, refused, offered norco5 again, refused, offered to reposition, refused. will continue to monitor.
[2020-09-11 04:00] VITALS: BP 151/85
[2020-09-11] MEDS: IPRATROPIUM NEB FS 0.5 MG/2.5 ML AMPUL.NEB NEB SCH ×6 (04:17→23:37)
[2020-09-11 07:03] LABS: BASOPHILS # (AUTO) 0.1 /CMM (0.0-0.2); EOSINOPHILS % (AUTO) 16.5 % (0.0-6.0); HEMATOCRIT 22 % (39-51); HEMOGLOBIN 7.2 g/dL (13.5-17.5); LYMPHOCYTES # (AUTO) 0.4 /CMM (0.8-4.8); LYMPHOCYTES % (AUTO) 5.7 % (20.0-44.0); MEAN CORPUSCULAR HGB CONC 33 g/dl (31.0-36.0); MEAN CORPUSCULAR VOLUME 93 fL (80-96); MONOCYTES # (AUTO) 0.5 /CMM (0.1-1.30); MONOCYTES % (AUTO) 6.6 % (2.0-12.0); NEUTROPHILS % (AUTO) 70.2 % (43.0-81.0); PLATELET COUNT (AUTO) 186 /CMM (150-450); RED BLOOD CELL COUNT(AUTO) 2.31 MIL/uL (4.5-6.0); WHITE BLOOD COUNT (AUTO) 7.1 K/uL (4.3-11.0)
[2020-09-11 07:10] LABS: MAGNESIUM 2.1 mg/dL (1.8-2.4); PHOSPHORUS 6.5 mg/dL (2.5-4.9); POTASSIUM 4.8 mmol/L (3.5-5.1)
[2020-09-11] MEDS: PANTOPRAZOLE 40 MG TABLET.DR PO SCH ×2 (07:18→08:12)
--- NOTE | 2020-09-11 07:22 | NUR ---
PIPELINE GANG SUPERVISOR NOTE OFFERED PATIENT PROTONIX, REFUSED AND SAID WILL HAVE IT WITH BREAKFAST. WILL PLACE PROTONIX BACK IN OMNI CELL.
--- NOTE | 2020-09-11 07:53 | NUR ---
UROLOGY PHYSICIAN ASSISTANT OPENING NOTE RECEIVED PATIENT IN BED, AWAKE, A/OX3. ON MECHANICAL VENTILATOR: SHILEY #6, AC 14, TV 600 FIO2 40% PEEP 5. IN NO RESP DISTRESS. EXTERNAL TELE MONITOR READS AFLUTTER 127; IN NO APPARENT DISTRESS. WILL INFORM MD ABOUT RHYTHM. RAC IV ACCESS G # 18 SL, RCW HD CATH PRESENT AND INTACT. SAFETY PRECAUTIONS IN PLACE; BED IS LOW POSITION AND LOCKED, HOB ELEVATED IN SEMI FOWLERS, RIALS UP X2, CALL LIGHT WITHIN REACH. WILL CONTINUE TO MONITOR PATIENT.
[2020-09-11 08:00] VITALS: BP 139/72
[2020-09-11] MEDS: SEVELAMER CARBONATE 800 MG POWD.PACK PO SCH ×3 (08:00→17:03)
[2020-09-11] MEDS: HYDROGEL DRESSING 90 GM TUBE TP SCH (08:02)
[2020-09-11] MEDS: clonazePAM 0.5 MG TABLET PO SCH ×2 (08:12→21:46)
[2020-09-11] MEDS: DOCUSATE SODIUM 100 MG CAPSULE PO SCH (08:12)
[2020-09-11] MEDS: LEVETIRACETAM (250 MG) 250 MG TABLET PO SCH ×2 (08:13→21:46)
[2020-09-11] MEDS: CHOLECALCIFEROL 1,000 UNIT TABLET (VIT D3) PO SCH (08:13)
[2020-09-11] MEDS: ASCORBIC ACID 500 MG TABLET PO SCH ×2 (08:13→17:02)
[2020-09-11] MEDS: PAROXETINE HCL 20 MG TABLET PO SCH (08:14)
[2020-09-11] MEDS: VIT B CMPLX 3/FA/VIT C/BIOTIN 1 TAB TABLET PO SCH (08:14)
[2020-09-11] MEDS: CARVEDILOL 12.5 MG TABLET PO SCH ×2 (08:15→21:45)
[2020-09-11] MEDS: DILTIAZEM HCL CD 240 MG PO SCH (08:15)
--- NOTE | 2020-09-11 08:15 | NUR ---
BRASS RECLAIMER CLOSING NOTE PATIENT IS RESTING IN BED. A/OX3. REMAINS ON MECHANICAL VENTILATOR: TWILA #6, AC 14, TV 600 FIO2 40% PEEP 5. NO RESP DISTRESS. C/O BACK PAIN REFUSED ALL REMEDIES AVAILABLE. REFUSED TURNING WELL WOUND CARE. EXTERNAL TELE MONITOR READS AFLUTTER 110S. NO DISTRESS. BED REMAINS LOW AND LOCKED, HOB ELEVATED IN SEMI FOWLERS, SIDE RIALS UP X2. CALL LIGHT WITHIN REACH. WILL ENDORSE TO NEXT SHIFT.
[2020-09-11] MEDS: PROSOURCE / PROSTAT (PYXIS) 30 ML UDC PO SCH ×2 (08:16→17:00)
[2020-09-11] MEDS: APIXABAN 5 MG TABLET PO SCH (08:28)
[2020-09-11] MEDS: ACETYLCYSTEINE 10% SOLN 400 MG/4 ML VIAL NEB SCH ×3 (08:42→23:37)
--- NOTE | 2020-09-11 10:56 | NUR ---
CREW LEAD NOTES PER RADIOLOGY THEY HAVE TO HOLD US GUIDED PARACENTESIS DUE TO KIDNEY LAB VALUES. WILL NOTIFY
[2020-09-11 11:49] LABS: OCCULT BLOOD STOOL NEGATIVE (NEGATIVE)
[2020-09-11] MEDS: ONDANSETRON 4 MG TAB.RAPDIS PO PRN (12:27)
--- NOTE | 2020-09-11 12:29 | NUR ---
BLOCK SETTER GYPSUM NOTES PATIENT FEELS NAUSEATED AND REQUESTING PRN ZOFRAN. PRN ZOFRAN ADMINISTERED. WILL REASSESS.
[2020-09-11 16:00] VITALS: BP 129/63
--- NOTE | 2020-09-11 18:50 | NUR ---
NON DESTRUCTIVE TESTING SPECIALIST CLOSING NOTE PATIENT IN BED, ASLEEP, A/OX3. ON MECHANICAL VENTILATOR: SHILEY #6, AC 14, TV 600 FIO2 40% PEEP 5. IN NO RESP DISTRESS. EXTERNAL TELE MONITOR READS AFLUTTER 120S; IN NO APPARENT DISTRESS. RAC IV ACCESS G # 18 SL, RCW HD CATH PRESENT AND INTACT. ALL NEEDS ATTENDED TO THROUGHOUT THE DAY. CONSENT FOR US GUIDED PARACENTESIS 09/12 SIGNED BY PATIENT. SAFETY PRECAUTIONS IN PLACE; BED IS LOW POSITION AND LOCKED, HOB ELEVATED IN SEMI FOWLERS, RIALS UP X2, CALL LIGHT WITHIN REACH. WILL ENDORSE TO SYRUP MAKER NURSE.
--- NOTE | 2020-09-11 19:10 | NUR ---
TELE/RN OPENING NOTES: RECEIVED PATIENT IN BED, AWAKE, A/OX3. ON MECHANICAL VENTILATOR: SHILEY #6, AC 14, TV 600 FIO2 40% PEEP 5. NO S/S RESP DISTRESS. TELE READING OF AFLUTTER 120. NO S/S OF DISTRESS. NO S/O PAIN AT THIS TIME. RAC IV ACCESS G # 18 SL, RCW HD CATH PRESENT AND INTACT. SAFETY PRECAUTIONS IN PLACE; BED IS LOW POSITION AND LOCKED, HOB ELEVATED IN SEMI FOWLERS, SIDE RAILS UP X2, CALL LIGHT WITHIN REACH. WILL CONTINUE TO MONITOR PATIENT ACCORDINGLY.
[2020-09-11 20:00] VITALS: BP 135/89
[2020-09-11] MEDS: SENNOSIDES 8.6 MG TABLET PO SCH (21:46)
[2020-09-12] VITALS (7 sets, daily range): BP systolic 99–141; BP diastolic 55–93
[2020-09-12] MEDS: IPRATROPIUM NEB FS 0.5 MG/2.5 ML AMPUL.NEB NEB SCH ×6 (03:42→23:59)
[2020-09-12] MEDS: ONDANSETRON 4 MG TAB.RAPDIS PO PRN (04:28)
--- NOTE | 2020-09-12 04:29 | NUR ---
TELE/RN NOTES: PT REQUESTED ZOFRAN FOR NAUSEA. VSS. ADMINISTERED ZOFRAN 4MG PO. TOLERATED WELL. WILL CONTINUE TO MONITOR.
--- NOTE | 2020-09-12 05:00 | NUR ---
TELE/RN NOTES: PT REFUSES TO BE CHANGED NO MATTER PT EDUCATION AND EXPLANATION. ALLOWS TO BE REPOSITIONED ONCE IN A WHILE.
--- NOTE | 2020-09-12 06:46 | NUR ---
TELE/RN CLOSING NOTES: PATIENT REMAINS IN BED, A/OX3. TOLERATING MECHANICAL VENTILATOR SETTINGS: SHILEY #6, AC 14, TV 600 FIO2 40% PEEP 5. NO S/S RESP DISTRESS. TELE READING OF AFLUTTER 124. NO S/S OF DISTRESS. NO S/O PAIN AT THIS TIME. RAC IV ACCESS G # 18 SL, RCW HD CATH PRESENT AND INTACT. SAFETY PRECAUTIONS IN PLACE; BED IS LOW POSITION AND LOCKED, HOB ELEVATED IN SEMI FOWLERS, SIDE RAILS UP X2, CALL LIGHT WITHIN REACH. WILL ENDORSE TO DAY SHIFT FOR IRMA.
[2020-09-12] MEDS: PANTOPRAZOLE 40 MG TABLET.DR PO SCH (07:38)
--- NOTE | 2020-09-12 08:00 | NUR ---
RN Opening Note Received patient in bed, AO x 3, able to responds all stimuli, does no c/o pain, given suction via trach O2sat 100%, respiratory even and unlabored with mechanical vent, no distress or SOB observed. Skin is warm to touch keep clean/dry reposition provided, intact IV site on right AC and right CW HD cath. Kept locked bed with elevated HOB for ensure airway and aspiration precaution and lowest position for safety. Call light within reach, will continue to monitor.
[2020-09-12] MEDS: ACETYLCYSTEINE 10% SOLN 400 MG/4 ML VIAL NEB SCH ×3 (08:32→23:59)
[2020-09-12 08:55] LABS: BASOPHILS # (AUTO) 0.1 /CMM (0.0-0.2); BASOPHILS % (AUTO) 0.9 % (0.0-2.0); EOSINOPHILS % (AUTO) 17.7 % (0.0-6.0); HEMATOCRIT 23 % (39-51); HEMOGLOBIN 7.4 g/dL (13.5-17.5); LYMPHOCYTES # (AUTO) 0.4 /CMM (0.8-4.8); LYMPHOCYTES % (AUTO) 4.2 % (20.0-44.0); MEAN CORPUSCULAR HGB CONC 32 g/dl (31.0-36.0); MEAN CORPUSCULAR VOLUME 96 fL (80-96); MONOCYTES # (AUTO) 0.6 /CMM (0.1-1.30); MONOCYTES % (AUTO) 5.6 % (2.0-12.0); NEUTROPHILS # (AUTO) 7.5 /CMM (1.8-8.9); NEUTROPHILS % (AUTO) 71.6 % (43.0-81.0); PLATELET COUNT (AUTO) 213 /CMM (150-450); WHITE BLOOD COUNT (AUTO) 10.5 K/uL (4.3-11.0)
[2020-09-12] MEDS: PAROXETINE HCL 20 MG TABLET PO SCH (08:56)
[2020-09-12] MEDS: LEVETIRACETAM (250 MG) 250 MG TABLET PO SCH ×2 (08:56→22:09)
[2020-09-12] MEDS: SEVELAMER CARBONATE 800 MG POWD.PACK PO SCH ×3 (08:56→17:20)
[2020-09-12] MEDS: VIT B CMPLX 3/FA/VIT C/BIOTIN 1 TAB TABLET PO SCH (08:56)
[2020-09-12] MEDS: clonazePAM 0.5 MG TABLET PO SCH ×2 (08:57→22:09)
[2020-09-12] MEDS: CARVEDILOL 12.5 MG TABLET PO SCH ×2 (08:58→22:13)
[2020-09-12] MEDS: DILTIAZEM HCL CD 240 MG PO SCH (08:58)
[2020-09-12] MEDS: ASCORBIC ACID 500 MG TABLET PO SCH ×2 (08:58→17:18)
[2020-09-12] MEDS: DOCUSATE SODIUM 100 MG CAPSULE PO SCH (09:00)
[2020-09-12] MEDS: PROSOURCE / PROSTAT (PYXIS) 30 ML UDC PO SCH ×2 (09:00→17:00)
[2020-09-12] MEDS: CHOLECALCIFEROL 1,000 UNIT TABLET (VIT D3) PO SCH (09:07)
[2020-09-12 09:08] LABS: CALCIUM, SERUM 8.2 mg/dL (8.5-10.1); CREATININE 6.8 mg/dL (0.6-1.3); POTASSIUM 5.7 mmol/L (3.5-5.1)
[2020-09-12] MEDS: HYDROGEL DRESSING 90 GM TUBE TP SCH (09:15)
[2020-09-12] MEDS ORDERED: HEPARIN INFUSION/D5W 500 ML IV PRN (10:30)
[2020-09-12] MEDS ORDERED: ACETAMINOPHEN 325 MG TABLET PO ONE (10:30)
[2020-09-12] MEDS ORDERED: diphenhydrAMINE HCL 50 MG/ML VIAL IV ONE (10:30)
--- NOTE | 2020-09-12 10:30 | NUR ---
patient signed consent for blood transfusion Given education and verbally pt understanding s/s of reaction.
--- NOTE | 2020-09-12 10:58 | NUR ---
Patient refused type and crros much PTT lab blood draw.
--- NOTE | 2020-09-12 18:57 | NUR ---
RN Closing note Patient in bed resting, starting RBC transfusion with HD and no s/s of reaction observed at this time. Pt does no appears discomfort, skin is warm to touch keep clean/dry. Respiratory even and unlabored O2sat 98-100% with mechanical vent, no sob or distress observed. Kept locked bed and elevated HOB for ensure airway and aspiration precaution, and lowest position for safety, bed alarm on at all the times, call light within reach, will endorse overnight babysitter.
--- NOTE | 2020-09-12 19:26 | NUR ---
Blood transfusion done no s/s of reaction observed, v/s: 155/55, 132, 19, 98.3.
--- NOTE | 2020-09-12 19:30 | NUR ---
URGENT CARE NURSE PRACTITIONER OPENING NOTE RECEIVED PATIENT IN BED. CURRENTLY RECEIVED HD. BLOOD TRANSFUSION COMPLETED DURING REPORT AT 1914. A/OX3. ON MECHANICAL VENTILATOR: SHILEY #6, AC 14, TV 600 FIO2 40% PEEP 5. IN NO RESP DISTRESS. NO C/O PAIN AT THIS TIME. EXTERNAL TELE MONITOR READS AFLUTTER 129 WITH AV BLOCK, PER REPORT MD IS AWARE. IN NO APPARENT DISTRESS. BED IS LOW AND LOCKED, HOB ELEVATED IN SEMI FOWLERS, SIDE RIALS UP X2. CALL LIGHT WITHIN REACH. WILL CONTINUE TO MONITOR.
--- NOTE | 2020-09-12 20:23 | NUR ---
television tube inspector note HD COMPLETED. 2.5 LITERS OUT. BP 123/68 HR 129. WILL CONTINUE TO MONITOR.
--- NOTE | 2020-09-12 20:27 | NUR ---
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 ASKED PATIENT IF FEELS COLD, STATED YES. WARM BLANKET PROVIDED. WILL CONTINUE TO MONITOR. Addendum: 09/12/20 at 2300 by NIKITA COSTA RN DISREGARD NOTE ABOVE, DOCUMENTED UNDER WRONG PATIENT.
[2020-09-12] MEDS: APIXABAN 5 MG TABLET PO SCH (21:00)
--- NOTE | 2020-09-12 21:54 | NUR ---
RAISER HELPER NOTE INFORMED DR. DONAVON SANDHU THAT PATIENT H/H IS 7.4/23. 1 UNIT PRBC JUST GIVEN. PATIENT HAS ELIQUIS 5MG IS SCHEDULED. ALSO INFORMED HER H/H YESTERDAY IS 7.12/17. NO ELIQUIS GIVEN TODAY, LAST DOSE ELIQUIS 09/09/2020. PATIENT INITIALLY WAS GOING TO BE ON HEPARIN DRIP BUT REFUSE Q6HR BLOOD DRAWS. MD TELEPHONE ORDER HOLD DOSE AND CLARIFY TOMORROW.
[2020-09-12] MEDS: SENNOSIDES 8.6 MG TABLET PO SCH (22:08)
[2020-09-12] MEDS: ONDANSETRON HCL/PF 4 MG/2 ML VIAL IVP PRN (22:20)
--- NOTE | 2020-09-12 22:20 | NUR ---
ALL TERRAIN VEHICLE TECHNICIAN NOTE ADMINISTERED PRN ZOFRAN 4MG FOR C/O NAUSEA. WILL CONTINUE TO MONITOR.
[2020-09-13] VITALS: BP 122/61
[2020-09-13] MEDS: IPRATROPIUM NEB FS 0.5 MG/2.5 ML AMPUL.NEB NEB SCH ×4 (03:44→15:30)
[2020-09-13 04:00] VITALS: BP 127/73
--- NOTE | 2020-09-13 06:55 | NUR ---
IOS PROGRAMMER CLOSING NOTE PATIENT IS RESTING IN BED. A/OX3. ON MECHANICAL VENTILATOR: TWILA #6, AC 14, TV 600 FIO2 40% PEEP 5. NO RESP DISTRESS NOTED. NO C/O PAIN T/O SHIFT. MANAGED PATIENTS NAUSEA WITH ZOFRAN. EXTERNAL TELE MONITOR READS AFLUTTER 95. NO DISTRESS. BED REMAINS LOW AND LOCKED, HOB ELEVATED IN SEMI FOWLERS, SIDE RIALS UP X2. CALL LIGHT WITHIN REACH. PATIENT DID NOT ALLOW TURNING Q2, ONLY WANTED TO HAVE LEFT UPPER EXTREMITY ELEVATED ON PILLOW, DID NOT ALLOW WOUND CARE, ONLY ALLOWED PARTIAL LINEN CHANGE. WILL ENDORSE TO NEXT SHIFT.
--- NOTE | 2020-09-13 07:54 | NUR ---
PAPER RECLAIMING MACHINE OPERATOR NOTE PATIENT IN BED RESTING COMFORTABLY. PATIENT STATES NO PAIN AT THIS TIME. PATIENT ON VENT, TOLERATING VENT SETTINGS WELL. PATIENT BREATHING IS EVEN AND UNLABORED. PATIENT IN NO ACUTE DISTRESS. NO SOB NOTED. HOB IS ELEVATED. PATIENT LEFT UPPER EXTREMITY ELEVATED ON PILLOW. PATIENT ON CARDIAC MONITORING READING AFLUTTER HR 117. PATIENT BED ALARM IS ON. PATIENT SAFETY PRECAUTIONS IN PLACE PATIENT BED IS LOCKED AND IN LOWEST POSITION. CALL LIGHT WITHIN REACH. WILL CONTINUE TO MONITOR.
[2020-09-13 08:00] VITALS: BP 165/86
[2020-09-13] MEDS: SEVELAMER CARBONATE 800 MG POWD.PACK PO SCH ×3 (08:00→17:15)
[2020-09-13] MEDS: PANTOPRAZOLE 40 MG TABLET.DR PO SCH (08:11)
[2020-09-13] MEDS: ACETYLCYSTEINE 10% SOLN 400 MG/4 ML VIAL NEB SCH ×2 (08:15→15:30)
[2020-09-13 08:50] LABS: BASOPHILS # (AUTO) 0.1 /CMM (0.0-0.2); BASOPHILS % (AUTO) 1.1 % (0.0-2.0); EOSINOPHILS % (AUTO) 18.8 % (0.0-6.0); HEMATOCRIT 25 % (39-51); HEMOGLOBIN 8.2 g/dL (13.5-17.5); LYMPHOCYTES # (AUTO) 0.4 /CMM (0.8-4.8); LYMPHOCYTES % (AUTO) 3.8 % (20.0-44.0); MEAN CORPUSCULAR HGB CONC 33 g/dl (31.0-36.0); MEAN CORPUSCULAR VOLUME 96 fL (80-96); MONOCYTES # (AUTO) 0.6 /CMM (0.1-1.30); MONOCYTES % (AUTO) 5.2 % (2.0-12.0); NEUTROPHILS # (AUTO) 7.7 /CMM (1.8-8.9); NEUTROPHILS % (AUTO) 71.1 % (43.0-81.0); PLATELET COUNT (AUTO) 199 /CMM (150-450); RED BLOOD CELL COUNT(AUTO) 2.61 MIL/uL (4.5-6.0); WHITE BLOOD COUNT (AUTO) 10.8 K/uL (4.3-11.0)
[2020-09-13] MEDS: PROSOURCE / PROSTAT (PYXIS) 30 ML UDC PO SCH ×2 (09:00→16:25)
[2020-09-13] MEDS: DOCUSATE SODIUM 100 MG CAPSULE PO SCH (09:00)
[2020-09-13] MEDS: VIT B CMPLX 3/FA/VIT C/BIOTIN 1 TAB TABLET PO SCH (09:01)
[2020-09-13] MEDS: DILTIAZEM HCL CD 240 MG PO SCH (09:02)
[2020-09-13] MEDS: ASCORBIC ACID 500 MG TABLET PO SCH ×2 (09:05→17:26)
[2020-09-13] MEDS: clonazePAM 0.5 MG TABLET PO SCH (09:05)
[2020-09-13] MEDS: LEVETIRACETAM (250 MG) 250 MG TABLET PO SCH (09:06)
[2020-09-13] MEDS: CHOLECALCIFEROL 1,000 UNIT TABLET (VIT D3) PO SCH (09:06)
[2020-09-13] MEDS: PAROXETINE HCL 20 MG TABLET PO SCH (09:06)
[2020-09-13] MEDS: CARVEDILOL 12.5 MG TABLET PO SCH (09:06)
[2020-09-13] MEDS: APIXABAN 5 MG TABLET PO SCH (09:08)
--- NOTE | 2020-09-13 09:08 | NUR ---
CAPTAIN/AIRLINE PILOT NOTE Spoke with Dr. Bang about scheduled Eliquis, he is aware of low hgb. Okay to give per MD, patient positive with DVT.
[2020-09-13 09:12] LABS: CALCIUM, SERUM 8.2 mg/dL (8.5-10.1); CREATININE 6.4 mg/dL (0.6-1.3); POTASSIUM 5.3 mmol/L (3.5-5.1)
--- NOTE | 2020-09-13 09:15 | NUR ---
BEEF FARMER NOTE PATIENT REFUSED AM SCHEDULED SEVELAMER AND DOCUSATE. EDUCATED RISKS VS BENEFITS 3X. PATIENT CONTINUED TO REFUSE.
[2020-09-13] MEDS: HYDROGEL DRESSING 90 GM TUBE TP SCH (09:47)
[2020-09-13] MEDS: ONDANSETRON HCL/PF 4 MG/2 ML VIAL IVP PRN ×2 (11:33→17:43)
--- NOTE | 2020-09-13 11:33 | NUR ---
WORKERS COMPENSATION ANALYST NOTE PATIENT REQUESTING ZOFRAN ORDERED FOR NAUSEA. ZOFRAN PRN ORDERED GIVEN.
[2020-09-13 12:00] VITALS: BP 136/80
--- NOTE | 2020-09-13 12:04 | NUR ---
ASSISTANT BRANCH OPERATIONS MANAGER NOTE PATIENT REFUSING 1300 SCHEDULED RENVELA. EDUCATED RISKS VS BENEFITS 3X. PATIENT CONTINUED TO REFUSE.
[2020-09-13] MEDS ORDERED: APIX5TAB PO (13:37)
[2020-09-13] MEDS ORDERED: DILT240C88 PO (13:37)
[2020-09-13] MEDS ORDERED: PANT40TA2 PO (13:37)
[2020-09-13 16:00] VITALS: BP 109/73
--- NOTE | 2020-09-13 17:15 | NUR ---
SOCIAL SCIENTIST NOTE PATIENT REFUSING 1800 SCHEDULED RENVELA. EDUCATED RISKS VS BENEFITS 3X. PATIENT CONTINUED TO REFUSE.
--- NOTE | 2020-09-13 17:43 | NUR ---
USED CAR SALESPERSON NOTE PATIENT REQUESTING ZOFRAN ORDERED FOR NAUSEA. ZOFRAN PRN ORDERED GIVEN.
--- NOTE | 2020-09-13 18:30 | NUR ---
CREATIVE ARTS THERAPIST NOTE PATIENT MEDICALLY CLEARED FOR DISCHARGE. PATIENT IN NO ACUTE DISTRESS. NO SOB NOTED. PATIENT BREATHING IS EVEN AND UNLABORED. PATIENT ON VENT TOLERATING VENT SETTINGS WELL. PATIENT EXPRESSED NO PAIN. PATIENT EXPRESSED NO NAUSEA. PROVIDED DC INSTRUCTIONS. PATIENT VERBALIZED UNDERSTANDING. PATIENT ALLOWED FOR SKIN ASSESSMENT AND NO NEW SKIN BREAKDOWN NOTED. PATIENT ALLOWED ME TO PERFORM WOUND CARE. PATIENT KEPT CLEAN, DRY, AND COMFORTABLE THROUGHOUT SHIFT. EXPLAINED ALL DUE MEDS. PATIENT HAS BELONGINGS AND BELONGINGS LIST SIGNED. PATIENT ID BAND REMOVED. PATIENT IV REMOVED. REPORT GIVEN TO MARCK HARPER AT [facility]. PATIENT GOING BACK TO [facility] BY [facility] WITH TWO SALESPERSON FLYING SQUAD AND RT. REPORT GIVEN TO SALESPERSON FLYING SQUAD AND RT. MD AWARE OF DISCHARGE.
[2020-09-14] MEDS ORDERED: EPOETIN ALFA (10,000 UNIT) 10,000 UNIT/ML VIAL IV ONE (10:00)
== END 2020-09-13 18:30 | DRG 207 ==
LOC: ER 14:37 → TELE2 19:39 → TELE 09-08 16:01
PROVIDERS: ADMIT Student in an Organized Health Care Education/Training Program; ATTEND Internal Medicine
PROC: 5A1955Z Respiratory Ventilation, Greater than 96 Consecutive Hours (ICD-10-PCS; principal; 2020-09-08)
PROC: 5A1D70Z Performance of Urinary Filtration, Intermittent, Less than 6 Hours Per Day (ICD-10-PCS; 2020-09-08)
PROC: 0W9G3ZZ Drainage of Peritoneal Cavity, Percutaneous Approach (ICD-10-PCS; 2020-09-12)
PROC: 30233N1 Transfusion of Nonautologous Red Blood Cells into Peripheral Vein, Percutaneous Approach (ICD-10-PCS; 2020-09-12)
DX: J96.21 Acute and chronic respiratory failure with hypoxia (principal); E43 Unspecified severe protein-calorie malnutrition; N18.6 End stage renal disease; D68.59 Other primary thrombophilia; I13.2 Hypertensive heart and chronic kidney disease with heart failure and with stage 5 chronic kidney disease, or end stage renal disease; I82.B12 Acute embolism and thrombosis of left subclavian vein; Z99.11 Dependence on respirator [ventilator] status; I48.92 Unspecified atrial flutter; J98.11 Atelectasis; R18.8 Other ascites; T17.990A Other foreign object in respiratory tract, part unspecified in causing asphyxiation, initial encounter; R13.10 Dysphagia, unspecified; Z99.2 Dependence on renal dialysis; Z93.0 Tracheostomy status; Z93.1 Gastrostomy status; Z87.891 Personal history of nicotine dependence; Z79.01 Long term (current) use of anticoagulants; I48.91 Unspecified atrial fibrillation; Z86.711 Personal history of pulmonary embolism; G40.909 Epilepsy, unspecified, not intractable, without status epilepticus; F41.9 Anxiety disorder, unspecified; G89.29 Other chronic pain; J44.9 Chronic obstructive pulmonary disease, unspecified; Z79.51 Long term (current) use of inhaled steroids; Z79.899 Other long term (current) drug therapy; I50.9 Heart failure, unspecified; E87.5 Hyperkalemia; Z86.73 Personal history of transient ischemic attack (TIA), and cerebral infarction without residual deficits; Z86.718 Personal history of other venous thrombosis and embolism; D63.8 Anemia in other chronic diseases classified elsewhere; E83.39 Other disorders of phosphorus metabolism; X58.XXXA Exposure to other specified factors, initial encounter; Y92.9 Unspecified place or not applicable; Z86.19 Personal history of other infectious and parasitic diseases; G90.8 Other disorders of autonomic nervous system
CPT/HCPCS: 31720; 36415; 71045-TC; 71260-TC; 76942-TC; 80048-TC; 80053-TC; 80076-TC; 82272-TC; 82728-TC; 82784; 83540-TC; 83605-TC; 83735-TC; 84100-TC; 84155; 84165; 84207; 84484-TC; 85025-TC; 85378-TC; 85610-TC; 85730-TC; 86334; 86706; 86850-TC; 87040-TC; 87081-TC; 87340; 90935-TC; 93307-TC; 93971-TC; 94002-TC; 94003-TC; 94760-TC; 94762-TC; 94799-TC; 99082-TC; A4623; A6248; G0378; J0885; J1644; J1650; J2405; J3490; J7040; J7050; L8501; P9016-BL; Q0162; Q9967; U0003

== ENCOUNTER 2020-10-02 11:22 | Outpatient (CLI) | payer MEDICARE, MEDICAID ==
[~2020-10-02 11:22] MED LIST changes: -ALPR0.25 PO; -APIX2.5T PO; +APIX5TAB PO; +DILT240C88 PO; -DILT30TA14 PO; -FERR325T23 PO; -MUPI22OI2 TP; +PANT40TA2 PO; -ZINC1CAP2 PO
== END 2020-10-02 23:59 | disposition home or self-care (01) ==
LOC: US 11:22
PROVIDERS: ATTEND Internal Medicine Nephrology
DX: R18.8 Other ascites (principal)
CPT/HCPCS: 76942-TC

== ENCOUNTER 2020-11-08 11:39 | Outpatient (CLI) | payer MEDICARE, OTHER | END 2020-11-08 23:59 | disposition home or self-care (01) | LOC: US 11:39 | PROVIDERS: ATTEND Internal Medicine Nephrology | DX: R18.8 Other ascites (principal) | CPT/HCPCS: 76942-TC ==

== ENCOUNTER 2020-11-22 10:57 | Outpatient (CLI) | payer MEDICARE, MEDICAID | END 2020-11-22 23:59 | disposition home or self-care (01) | LOC: US 10:57 | PROVIDERS: ATTEND Internal Medicine Nephrology | DX: R18.8 Other ascites (principal) | CPT/HCPCS: 76942-TC ==

== ENCOUNTER 2020-12-06 11:33 | Outpatient (CLI) | payer MEDICARE, MEDICAID | END 2020-12-06 23:59 | disposition home or self-care (01) | LOC: US 11:33 | PROVIDERS: ATTEND Internal Medicine Nephrology | DX: R18.8 Other ascites (principal) | CPT/HCPCS: 76942-TC ==

== ENCOUNTER 2020-12-27 11:48 | Outpatient (CLI) | payer MEDICARE, MEDICAID | END 2020-12-27 23:59 | disposition home or self-care (01) | LOC: US 11:48 | PROVIDERS: ATTEND Internal Medicine Nephrology | DX: R18.8 Other ascites (principal) | CPT/HCPCS: 76942-TC ==

== ENCOUNTER 2021-01-02 17:59 | Inpatient (IN) | payer MEDICARE, OTHER ==
[~2021-01-02] VITALS: Ht 190.5 cm; Wt 103.0 kg
--- NOTE | 2021-01-02 18:04 | NUR ---
ROGERIO Chamorro RESPIRATORY THERAPIST, FEELING OF CHOKING WHEN EATING SANDWITCH IN A DIALYSIS CENTER, PATIENT STATES ABLE TO TAKE HIS DIALYSIS TODAY BUT DOES NOT KNOW IF HE WAS ABLE TO FINISH IT. TO ER BED 8, RT AT BEDSIDE, VENT SETTINGS OF AC, VT 600, PEEP 5.0, O2 30%. HOOKED TO MONITOR, CHANGED TO HOSP GOWN, WARM BLANKET PROVIDED. PATIENT AAO x 4, DENIES SOB. DR CHAVEZ AT BEDSIDE
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
[2021-01-02] MEDS ORDERED: ONDANSETRON HCL/PF - ER 4 MG/2 ML VIAL IV ONE (18:30)
[2021-01-02] MEDS ORDERED: GLUCAGON,HUMAN RECOMBINANT 1 MG/VIAL VIAL IV ONE (18:30)
[2021-01-02] MEDS ORDERED: GLUCAGON,HUMAN RECOMBINANT 1 MG/VIAL VIAL ONE (18:33)
[2021-01-02] MEDS ORDERED: ALPR0.25 PO (18:34)
[2021-01-02] MEDS ORDERED: ONDANSETRON HCL/PF 4 MG/2 ML VIAL ONE (18:34)
[2021-01-02] MEDS ORDERED: CINA30TA2 PO (18:34)
[2021-01-02] MEDS ORDERED: FERR325T23 PO (18:34)
[2021-01-02] MEDS ORDERED: ONDA4TAB5 PO (18:34)
[2021-01-02 18:45] LABS: BASOPHILS # (AUTO) 0.1 /CMM (0.0-0.2); BASOPHILS % (AUTO) 0.7 % (0.0-2.0); HEMATOCRIT 34 % (39-51); HEMOGLOBIN 11.4 g/dL (13.5-17.5); LYMPHOCYTES # (AUTO) 0.3 /CMM (0.8-4.8); LYMPHOCYTES % (AUTO) 4.2 % (20.0-44.0); MEAN CORPUSCULAR HGB CONC 33 g/dl (31.0-36.0); MEAN CORPUSCULAR VOLUME 91 fL (80-96); MONOCYTES # (AUTO) 0.4 /CMM (0.1-1.30); MONOCYTES % (AUTO) 6.1 % (2.0-12.0); NEUTROPHILS # (AUTO) 5.9 /CMM (1.8-8.9); PLATELET COUNT (AUTO) 175 /CMM (150-450); RED BLOOD CELL COUNT(AUTO) 3.79 MIL/uL (4.5-6.0); WHITE BLOOD COUNT (AUTO) 7.1 K/uL (4.3-11.0)
--- NOTE | 2021-01-02 18:46 | NUR ---
PATIENT REFUSED MEDICATIONS AND RAPID COVID SWAB, MADE AWARE
--- NOTE | 2021-01-02 18:52 | NUR ---
MEDICAL MALPRACTICE PAR[place]GAL AT BEDSIDE
[2021-01-02 18:58] LABS: ALBUMIN 2.5 g/dL (3.4-5.0); BILIRUBIN,DIRECT 0.2 mg/dL (0.0-0.2); BILIRUBIN,TOTAL 0.5 mg/dL (0.2-1.0); CALCIUM, SERUM 8.5 mg/dL (8.5-10.1); CREATININE 4.2 mg/dL (0.6-1.3); TOTAL PROTEIN, SERUM 6.8 g/dL (6.4-8.2)
--- NOTE | 2021-01-02 19:09 | NUR ---
REPORT GIVEN TO SAIGE HARPER FOR [facility]
--- NOTE | 2021-01-02 19:26 | NUR ---
TOOK OVER PT CARE. PT AAOX4, AWARE OF PLAN OF CARE. WILL CONTINUE TO MONITOR.
--- NOTE | 2021-01-02 19:27 | NUR ---
CALL LIGHT AT BEDSIDE, VSS.
--- NOTE | 2021-01-02 19:29 | NUR ---
RECEIVED REPORT THAT PT IS VIDEO RECORDING ER STAFF IN THE ER. NURSING AFTERSCHOOL BABYSITTER CALLED AND MADE AWARE OF THE SITUATION. PT MADE AWARE THAT VIDEO RECORDING IS PROHIBITED IN THE ER DEPARTMENT. PT STILL REMAINS TO REFUSE VIDEO RECORDING.
--- NOTE | 2021-01-02 19:29 | NUR ---
WHILE ASSESSING THE PT, PT WAS TAKING A VIDEO OF ME. I DID TELL THE PT TO NOT RECORD. PT DID NOT TURN OFF THE RECORDING.
--- NOTE | 2021-01-02 19:31 | NUR ---
SPOKE TO PT REGARDING VIDEO RECORDING PT STATES "I CAN DO WHATEVER I WANT, THIS IS A PUBLIC PLACE". PT MADE AWARE THAT THIS IS A HOSPITAL AND VIDEO RECORDING IS PROHIBITED. PT STATES "I WILL RECORD WHATEVER I WANT". PT REFUSING SOME TREATMENT THAT ORDERED BY ER MD AND BEING VERY DIFFICULT TO ER STAFF MEMBERS. PT MADE AWARE THAT [employer] WILL BE CALLED DUE TO VIDEO RECORDING IS PROHIBITED IN THE HOSPITAL.
--- NOTE | 2021-01-02 19:40 | NUR ---
PT HAS SHILEY #6 TRACH VENT SETTINGS: AC 14, VT600,FI02=30%,PEEP+5.
--- NOTE | 2021-01-02 19:42 | NUR ---
SECURITY CALLED TO SPEAK TO THE PT REGARDING RECORDING MEDICAL STAFF.
--- NOTE | 2021-01-02 19:46 | NUR ---
PT STILL REMAINS TO REFUSE TO STOP VIDEO RECORDING ER STAFF. MELANY CALLED TO NOTIFY OF PT VIDEO RECORDING.
--- NOTE | 2021-01-02 19:51 | NUR ---
PT REFUSING TO STOP TAKING VIDEOS OF MEDICAL STAFF.
--- NOTE | 2021-01-02 19:52 | NUR ---
NURSING DREDGE MASTER TYRONE AT BEDSIDE TALKING TO PT REGARDING VIDEO RECORDING ER STAFF.
--- NOTE | 2021-01-02 19:54 | NUR ---
ROHAN BAUM AT [facility] TALKING TO PT WITH PT FAMILY ON THE PHONE.
--- NOTE | 2021-01-02 20:28 | NUR ---
[employer] AT BEDSIDE TALKING TO PT.
--- NOTE | 2021-01-02 20:51 | NUR ---
[employer] AT BEDSIDE SPEAKING TO PT REGARDING RECORDING MEDICAL STAFF.
--- NOTE | 2021-01-02 21:17 | NUR ---
ER MD AND I SPOKE TO THE PT REGARDING PLAN OF CARE. PT AWARE OF PLAN OF CARE. PT STATED HE WAS OKAY WITH BEING SWABBED FOR COVID.
--- NOTE | 2021-01-02 21:22 | NUR ---
PT REMAINS ON FLATBED DRIVER AND PULSE OX. RESTING COMFORTABLY. PT DOES NOT WANT TO BE PLACED IN A GOWN DUE TO HIM BEING "WARM."
--- NOTE | 2021-01-02 21:25 | NUR ---
LUISID SWABBED, SENT TO LAB.
--- NOTE | 2021-01-02 21:42 | NUR ---
COVID NEGATIVE PER LAB
--- NOTE | 2021-01-02 21:48 | NUR ---
DR. GUARDADO PAGEBelle PER ER ORDER.
--- NOTE | 2021-01-02 21:48 | NUR ---
DR. CHAVEZ SPEAKING RADARMAN GI DR. BURNS REGARDING PLAN OF CARE.
--- NOTE | 2021-01-02 21:59 | NUR ---
BED 8 TO 372
--- NOTE | 2021-01-02 22:05 | NUR ---
DR. GUARDADO PAGEBelle PER ER ORDER.
--- NOTE | 2021-01-02 22:15 | NUR ---
REPORT GIVEN TO RIKA HARPER FOR [facility]
--- NOTE | 2021-01-02 22:26 | NUR ---
DR. GUARDADO PAGEBelle PER ER ORDER.
--- NOTE | 2021-01-02 23:00 | NUR ---
DR. GUARDADO PAGEBelle PER ER ORDER.
--- NOTE | 2021-01-02 23:25 | NUR ---
DR. GUARDADO PAGEBelle PER ER ORDER.
--- NOTE | 2021-01-02 23:51 | NUR ---
er spoke to dr. pimentel regarding pt. admit pt to epic per dr. pimentel order.
[2021-01-03 00:20] VITALS: BP 156/73
[2021-01-03] MEDS ORDERED: HYDROCODONE/APAP 5/325MG TABLET PO PRN (00:30)
[2021-01-03] MEDS ORDERED: ZOLPIDEM TARTRATE 5 MG TABLET PO PRN (00:30)
[2021-01-03] MEDS ORDERED: Z GUARD REMEDY 2 OZ OINT TP PRN (00:30)
[2021-01-03] MEDS ORDERED: ONDANSETRON HCL/PF 4 MG/2 ML VIAL IVP PRN (00:30)
[2021-01-03] MEDS ORDERED: ACETAMINOPHEN 325 MG TABLET PO PRN (00:30)
[2021-01-03] MEDS ORDERED: LEVETIRACETAM (500MG) 500 MG in IV NS 0.9% 100 ML IV SCH ×2 (00:30→08:00)
[2021-01-03] MEDS ORDERED: LORAZEPAM INJ 2 MG/ML VIAL IV PRN (00:30)
[2021-01-03] MEDS: HEPARIN SODIUM, PORCINE 5000 UNITS/1 ML VIAL SQ SCH ×4 (00:30→20:35)
--- NOTE | 2021-01-03 00:32 | NUR ---
RT CALLED, PT TRASFERED PER ACLS PROTOCOL
[2021-01-03 00:40] VITALS: BP 156/73
[2021-01-03] MEDS: PANTOPRAZOLE 40 MG VIAL IV SCH (00:56)
--- NOTE | 2021-01-03 01:07 | NUR ---
RN NOTES PT ARRIVED TO UNIT VIA NIMO PT ALERT AND ORIENTED X4 PT IS VENTILATOR DEPENDENT SETTINGS SHILEY# 6 , AC 14, VT 600, FI02 30 % PEEP +5. TOLERATING WELL. PT HAS IV ACCESS ON THE RIGHT AC 18 G INTACT FLUSHING WELL NO SWELLING NOTED AT SITE. PT REPORTED NO PAIN OR DISCOMFORT AT THIS TIME. PT REFUSED BELONGINGS CHECK. PT REFUSED LL MEDICATIONS EXPECT PROTONIX PT STATED " I DO NOT WANT TO TAKE ANY MDICATIONS IM TIRED OF GETTING POKED AND PRODDED I TOLD THEM DOWNSTAIRS I DON'T WANT ANY MEDICATION" TWO RNS AT BEDSIDE WHEN PT STATED THAT VAHE HILL AND CASANDRA GORDILLO AND CHARGE NURSE INFORMED, MD AWARE. SKIN INTACT PT REFUSED BACK SKIN CHECK PT STATED " MY BACK SKIN IS FINE YOU DON'T NEED TO CHECK" RN OFFERED TO CHECK MULTIPLE TIMES EXPLAINED RISKS AND BENEFITS X 3 REFUSED X3. ORIENTED PT TO ROOM AND UNIT PT VERBALIZED UNDERSTANDING . CALL LIGHT WITHIN REACH SAFETY PRECAUTIONS FOLLOWED. WILL CONTINUE TO MONITOR.
--- NOTE | 2021-01-03 02:05 | NUR ---
RN NOTES PT REFUSED MECHANICAL COMPRESSION SCD X3 RISK AND BENEFITS EXPLAINED X3 WILL CONTINUE TO MONITOR.
[2021-01-03 04:00] VITALS: BP 160/95
[2021-01-03] MEDS: CLINDAMYCIN 300 MG in IV D5W 50 ML IV SCH ×2 (05:44→11:33)
--- NOTE | 2021-01-03 06:56 | NUR ---
RN NOTES PT ALERT AND ORIENTED X4 PT IS VENTILATOR DEPENDENT SETTINGS SHILEY# 6 , AC 14, VT 600, FI02 30 % PEEP +5. TOLERATING WELL. PT HAS IV ACCESS ON THE RIGHT AC 18 G INTACT FLUSHING WELL NO SWELLING NOTED AT SITE. PT REPORTED NO PAIN OR DISCOMFORT AT THIS TIME. CALL LIGHT WITHIN REACH SAFETY PRECAUTIONS FOLLOWED. WILL ENDORSE CARE TO DAY SHIFT NURSE.
--- NOTE | 2021-01-03 07:59 | NUR ---
RESIDENTIAL MENTAL HEALTH WORKER OPENING NOTES: RECEIVED PT LYING IN BED, AWAKE. A/O X4. PT IS VENTILATOR DEPENDENT. TOLERATING WELL. PT HAS IV ACCESS ON THE RIGHT AC 18 G, INTACT AND FLUSHING WELL. NO SWELLING NOTED AT SITE. PT REPORTED NO PAIN OR DISCOMFORT AT THIS TIME. CALL LIGHT WITHIN REACH SAFETY PRECAUTIONS FOLLOWED. WILL CONTINUE TO MONITOR.
[2021-01-03 08:00] VITALS: BP 159/84
--- NOTE | 2021-01-03 08:02 | NUR ---
OFFSET LABEL REWINDER NOTE: PT HAS PRN KEPPRA 500MG IV. PT IS REFUSING MEDICATION. I EXPLAINED WHY PT NEEDS THIS MEDICATION AND ENCOURAGED PT TO TAKE IT. PT WAS ASKED 3 TIMES IF HE WAS SURE HE WANTED TO REFUSE. PT IS REFUSING MEDICATION
--- NOTE | 2021-01-03 09:29 | NUR ---
SOUND SYSTEM INSTALLER NOTE PT REFUSED HEPARIN. PT STATED "I DON'T WANT ANYTHING ELSE. I DON'T NEED IT."
--- NOTE | 2021-01-03 09:46 | NUR ---
RN NOTES PATIENT WAS SEEN BY DR. GEO Chamorro/ GIOVANI FOR CONSENT FOR HEMODIALYSIS. CONSENT FORM PROVIDED TO AND SIGNED BY PATIENT, WITNESSED BY MEREDITH PARNELL. WILL CONTINUE TO MONITOR.
--- NOTE | 2021-01-03 10:11 | NUR ---
TOUCH UP PAINTER HAND NOTE DR MEEK CALLED, INQUIRED ABOUT PT'S ABILITY TO SWALLOW. NURSING SWALLOW SCREEN INITIATED. PT PASSED AND IS ABLE TO SWALLOW. [place] NOTIFIED.
--- NOTE | 2021-01-03 10:26 | NUR ---
RN NOTES DR. LOPES MADE AWARE THAT PATIENT IS ABLE TO PASS NURSING SWALLOW SCREEN; PER DR. LOPES, WILL AWAIT FOR DR. MEEK'S NOTES.
--- NOTE | 2021-01-03 11:34 | NUR ---
ORGAN TUNER ELECTRONIC NOTE PT REFUSED CLINDAMYCIN 300MG IV. PT STATES HE DOES NOT WANT ANY MEDICATION.
--- NOTE | 2021-01-03 12:35 | NUR ---
RN NOTES KEYPUNCH OPERATOR STATED THAT PATIENT DID NOT WANT TO EAT LUNCH AT THIS TIME. NO COMPLAINTS OF DIFFICULTY SWALLOWING/CHOKING. WILL CONTINUE TO MONITOR.
--- NOTE | 2021-01-03 13:56 | NUR ---
RN NOTES SPOKE W/ MELLISSA, SLOPE RUNNER, AND MADE AWARE OF PATIENT'S CHANGE IN NPO STATUS W/ RECOMMENDATION FOR SPEECH SWALLOW EVAL. DR. LOPES MADE AWARE AND AGREED WELL W/ ORDER NOTED.
--- NOTE | 2021-01-03 13:58 | NUR ---
RN NOTES SPOKE W/ PATIENT AND ASKED IF HE WOULD LIKE TO TAKE HIS KEPPRA AND CLINDAMYCIN MEDICATIONS AND PATIENT AGREED AT THIS TIME; PHARMACY MADE AWARE AND WILL CHANGE MEDS TO PO FORM.
[2021-01-03] MEDS: CLINDAMYCIN HCL 150 MG CAPSULE PO SCH ×2 (14:48→20:32)
[2021-01-03] MEDS: LEVETIRACETAM (250 MG) 250 MG TABLET PO SCH ×2 (14:48→20:32)
[2021-01-03 16:00] VITALS: BP 161/93
--- NOTE | 2021-01-03 18:48 | NUR ---
COGNOS ARCHITECT CLOSING NOTES PT IS LYING IN BED, AWAKE, A/O X4. PT IS VENTILATOR DEPENDENT. IV ACCESS IN RIGHT AC #18. INTACT, FLUSHES WELL. PT WAS SUCTIONED AND SEEN BY RT FOR LAVAGE. PT HAS BEEN VERY RUDE TO STAFF, USING FOUL LANGUAGE AND DISRESPECTING STAFF. SWALLOW EVAL DONE, PATIENT PASSED AND IS ADVANCED TO RENAL DIET. PT REPORTED NO PAIN OR DISCOMFORT AT THIS TIME. CALL LIGHT WITHIN REACH. WILL ENDORSE TO BIN OPERATOR NURSE.
--- NOTE | 2021-01-03 19:30 | NUR ---
AUTOMATIC OPERATOR OPENING NOTE RECEIVED PATIENT IN BED. A/OX4. ON MECHANICAL VENT: SHILEY #6. AC 14, TV 600, FIO2 530%, PEEP 5. RESPIRATIONS ARE EVEN AND UNLABORED. NO S/S SOB NOTED. EXTERNAL TELE MONITOR READS A FLUTER HR 92. IN NO APPARENT DISTRESS. IV ACCESS IN RAC#18 PATENT AND SALINE LOCKED. BED IS LOW AND LOCKED, HOB ELEVATED IN SEMI FOWLERS, SIDE RAIL UP X2, CALL LIGHT WITHIN REACH. WILL CONTINUE TO MONITOR THROUGHOUT SHIFT.
[2021-01-03 20:00] VITALS: BP_SYST 152; BP_DIAS 62; BP_DIAS 63
--- NOTE | 2021-01-03 20:35 | NUR ---
telemetry rn note patient refused heparin 5000 units. informed on risk and benefts. continues to refuse. states doesnt want to get poked anymore.
[2021-01-04] VITALS: BP 170/68
--- NOTE | 2021-01-04 | NUR ---
TRAINING AND DEVELOPMENT SPECIALIST NOTE PATIENT MIDNIGHT VITALS FROM [facility] IS 170/68. I WENT TO PATIENTS ROOM TO ASK IF I COULD REASSESS THE BLOOD PRESSURE. HE STATED NO. ASKED HIM IF HE WAS ANXIOUS, OR IN PAIN, STATED NO, AND DOES NOT WANT TO TAKE ANY OTHER MEDICATIONS TONIGHT, NO MORE BLOOD PRESSURE AND NO MORE BEING POKED. INFORMED HIM THERE IS A MEDICATION DUE AT 0200. HE STATED THAT IS NOT GOING TO LET ME SLEEP. INFORMED HIM I CAN GIVE IT ONE HOUR BEFORE OR AFTER. PATIENT SAID DONT WAKE ME UP. STATED OK I WILL CONTINUOUSLY CHECK ON YOU AND IF YOU ARE UP I WILL GIVE IT. STATED OK.
[2021-01-04] MEDS: CLINDAMYCIN HCL 150 MG CAPSULE PO SCH ×3 (02:00→14:00)
--- NOTE | 2021-01-04 04:00 | NUR ---
TOOLROOM KEEPER NOTE PATIENT REFUSED 0400 VITAL SIGNS
--- NOTE | 2021-01-04 06:27 | NUR ---
PIG MACHINE CRANE OPERATOR NOTE PATIENT REFUSED AM LABS AND CXR.
--- NOTE | 2021-01-04 06:59 | NUR ---
BACTERIOLOGIST DAIRY CLOSING NOTE PATIENT RESTING IN BED. A/OX4. ON MECHANICAL VENT NO CHANGES IN SETTINGS. NO RESP DISTRESS. NO C/O PAIN. TELE MONITOR READS A FLUTTER. NO DISTRESS. IV ACCESS MAINTAIN IN RAC#18. BED REMAINS LOW AND LOCKED, HOB ELEVATED IN SEMI FOWLERS, SIDE RAIL UP X2, CALL LIGHT WITHIN REACH. WILL ENDORSE TO ONCOMING SHIFT.
--- NOTE | 2021-01-04 07:30 | NUR ---
SWING GRINDER NOTES PT IN BED, AWAKE, ALERT AND ORIENTED, NO COMPLAINT AT THIS TIME, NOT IN DISTRESS, SEEN BY DR. MOSES MD AWARE OF LAB DRAW AND MEDS REFUSALS, PLAN OF CARE DISCUSSED WITH PT, VERBALIZED UNDERSTANDING.
[2021-01-04] MEDS: HEPARIN SODIUM, PORCINE 5000 UNITS/1 ML VIAL SQ SCH (08:52)
[2021-01-04] MEDS: LEVETIRACETAM (250 MG) 250 MG TABLET PO SCH (08:52)
[2021-01-04] MEDS: PANTOPRAZOLE 40 MG VIAL IV SCH (08:52)
--- NOTE | 2021-01-04 08:52 | NUR ---
GRADER TENDER NOTES PT REFUSED ALL MORNING MEDS, VITALS SIGNS AND LABS, DR. LOPES AWARE, PT STATES THAT HE PREFERS TO BE LEFT BY HIMSELF AND NOT TO BE BOTHERED AND NOT TO WAKE HIM UP, PT NOT IN DISTRESS, CALL LIGHT WITHIN REACH.
[2021-01-04 10:27] LABS: BASOPHILS # (AUTO) 0.1 /CMM (0.0-0.2); BASOPHILS % (AUTO) 1.2 % (0.0-2.0); EOSINOPHILS % (AUTO) 4.7 % (0.0-6.0); HEMATOCRIT 32 % (39-51); HEMOGLOBIN 10.7 g/dL (13.5-17.5); LYMPHOCYTES # (AUTO) 0.5 /CMM (0.8-4.8); LYMPHOCYTES % (AUTO) 6.7 % (20.0-44.0); MEAN CORPUSCULAR HGB CONC 34 g/dl (31.0-36.0); MEAN CORPUSCULAR VOLUME 90 fL (80-96); MONOCYTES # (AUTO) 0.5 /CMM (0.1-1.30); MONOCYTES % (AUTO) 6.8 % (2.0-12.0); NEUTROPHILS # (AUTO) 5.6 /CMM (1.8-8.9); NEUTROPHILS % (AUTO) 80.6 % (43.0-81.0); PLATELET COUNT (AUTO) 165 /CMM (150-450); RED BLOOD CELL COUNT(AUTO) 3.53 MIL/uL (4.5-6.0); WHITE BLOOD COUNT (AUTO) 6.9 K/uL (4.3-11.0)
[2021-01-04 10:42] LABS: CALCIUM, SERUM 8.6 mg/dL (8.5-10.1); CREATININE 5.6 mg/dL (0.6-1.3); PHOSPHORUS 6.4 mg/dL (2.5-4.9); POTASSIUM 4.7 mmol/L (3.5-5.1)
--- NOTE | 2021-01-04 15:45 | NUR ---
PUBLIC IMPROVEMENT INSPECTOR NOTES PT IN BED, AWAKE, ALERT AND ORIENTED, NO COMPLAINT AT THIS TIME, NOT IN DISTRESS, SEEN BY DR. LOPES, DISCHARGE ORDER GIVEN, DISCHARGE AND MEDICATION INSTRUCTIONS PROVIDED TO PT, VERBALLIZED UNDERSTANDING, PT REFUSED PM CARE, REFUSED WEARING A MASK ON THE WAY OUT, REFUSED BODY/SKIN CHECK ON DISCHARGE, REPORT GIVEN TO KENIA HARPER OF [facility], BELONGINGS ACCOUNTED FOR, PICKED UP BY 3 AMBULANCE PERSONNEL, LEFT VIA GUERNEY IN STABLE CONDITION.
[2021-01-05] MEDS ORDERED: PANTOPRAZOLE 40 MG TABLET.DR PO SCH (07:30)
== END 2021-01-04 15:40 | DRG 393 ==
LOC: ER 18:04 → TELE 22:11
PROVIDERS: ADMIT Nurse Practitioner Acute Care; ATTEND Nurse Practitioner Acute Care
PROC: 5A1945Z Respiratory Ventilation, 24-96 Consecutive Hours (ICD-10-PCS; principal; 2021-01-02)
PROC: 5A1D70Z Performance of Urinary Filtration, Intermittent, Less than 6 Hours Per Day (ICD-10-PCS; 2021-01-04)
DX: T18.128A Food in esophagus causing other injury, initial encounter (principal); N18.6 End stage renal disease; J69.0 Pneumonitis due to inhalation of food and vomit; J96.21 Acute and chronic respiratory failure with hypoxia; Z99.11 Dependence on respirator [ventilator] status; I13.2 Hypertensive heart and chronic kidney disease with heart failure and with stage 5 chronic kidney disease, or end stage renal disease; D68.59 Other primary thrombophilia; I69.354 Hemiplegia and hemiparesis following cerebral infarction affecting left non-dominant side; R18.8 Other ascites; J98.11 Atelectasis; I48.92 Unspecified atrial flutter; E11.22 Type 2 diabetes mellitus with diabetic chronic kidney disease; Z99.2 Dependence on renal dialysis; D64.9 Anemia, unspecified; F41.9 Anxiety disorder, unspecified; Z93.0 Tracheostomy status; Z79.01 Long term (current) use of anticoagulants; I48.91 Unspecified atrial fibrillation; J44.9 Chronic obstructive pulmonary disease, unspecified; X58.XXXA Exposure to other specified factors, initial encounter; Y92.9 Unspecified place or not applicable; G40.909 Epilepsy, unspecified, not intractable, without status epilepticus; I50.9 Heart failure, unspecified; Z93.1 Gastrostomy status; I70.0 Atherosclerosis of aorta; E78.5 Hyperlipidemia, unspecified; D63.8 Anemia in other chronic diseases classified elsewhere; K21.9 Gastro-esophageal reflux disease without esophagitis; Z82.49 Family history of ischemic heart disease and other diseases of the circulatory system; Z86.718 Personal history of other venous thrombosis and embolism; Z91.19 Patient's noncompliance with other medical treatment and regimen; F32.9 Major depressive disorder, single episode, unspecified; Z83.3 Family history of diabetes mellitus; E66.9 Obesity, unspecified; Z79.51 Long term (current) use of inhaled steroids; Z79.899 Other long term (current) drug therapy; Z68.28 Body mass index [BMI] 28.0-28.9, adult; Z74.09 Other reduced mobility
CPT/HCPCS: 31720; 36415; 70360-TC; 71045-TC; 80048-TC; 80061-TC; 80076-TC; 83735-TC; 84100-TC; 85025-TC; 85730-TC; 86706; 87081-TC; 87340; 90935-TC; 94002-TC; 94003-TC; 94760-TC; 94799-TC; A4623; C9113; C9803; G0378; J1610; J1644; J1953; J2405; J3490; J7030; J7060

== ENCOUNTER 2021-01-08 11:05 | Inpatient (IN) | payer MEDICARE, OTHER ==
[~2021-01-08] VITALS: Ht 182.9 cm; Wt 108.9 kg
[~2021-01-08 11:05] MED LIST changes: -ACET-868 PO; +ALPR0.25 PO; -ASCO-495 PO; +CINA30TA2 PO; -DIPH25CA51 PO; +FERR325T23 PO; -ZOLP5TAB2 PO
--- NOTE | 2021-01-08 11:09 | NUR ---
BIBPA FRM [facility], C/O TACHYCARDIA 150'S, PATIENT MISSED DIALYSIS YESTERDAY, WAS SCHEDULED FOR PARACENTESIS TODAY. CANCELLED BY DR TURCIOS DUE TO TACHYCARDIA AND WAS ORDERED TO BE SENT TO THE ER. TO ER BED 5, HOOKED TO MONITOR, CHANGED TO HOSP GOWN, WARM BLANKET PROVIDED, PATIENT AAO x 3. PATIENT NOTED W TRACHEOSTOMY, VENTILATOR DEPENDENT, WITH SETTINGS AC, PEEP 5.0, VT 600 AND O2 30%. RT AT BEDSIDE. AWAITING MD RAMÍREZ
--- NOTE | 2021-01-08 11:28 | NUR ---
DR MACDONALD AT BEDSIDE
--- NOTE | 2021-01-08 12:00 | NUR ---
PT REFUSED BLOOD DRAW, ERMD NOTIFIED.
[2021-01-08 13:09] LABS: BASOPHILS # (AUTO) 0.1 /CMM (0.0-0.2); BASOPHILS % (AUTO) 0.7 % (0.0-2.0); EOSINOPHILS % (AUTO) 5.2 % (0.0-6.0); HEMATOCRIT 34 % (39-51); HEMOGLOBIN 11.3 g/dL (13.5-17.5); LYMPHOCYTES # (AUTO) 0.5 /CMM (0.8-4.8); LYMPHOCYTES % (AUTO) 6.7 % (20.0-44.0); MEAN CORPUSCULAR HGB CONC 33 g/dl (31.0-36.0); MEAN CORPUSCULAR VOLUME 92 fL (80-96); MONOCYTES # (AUTO) 0.5 /CMM (0.1-1.30); MONOCYTES % (AUTO) 6.4 % (2.0-12.0); NEUTROPHILS # (AUTO) 6.2 /CMM (1.8-8.9); PLATELET COUNT (AUTO) 187 /CMM (150-450); RED BLOOD CELL COUNT(AUTO) 3.74 MIL/uL (4.5-6.0); WHITE BLOOD COUNT (AUTO) 7.7 K/uL (4.3-11.0)
[2021-01-08 13:19] LABS: POTASSIUM 4.9 mmol/L (3.5-5.1)
[2021-01-08] MEDS ORDERED: DIPH25CA51 PO (13:22)
[2021-01-08] MEDS ORDERED: ACET-868 PO (13:22)
[2021-01-08] MEDS ORDERED: ASCO-495 PO (13:22)
[2021-01-08] MEDS ORDERED: CALC500T63 PO (13:22)
[2021-01-08] MEDS ORDERED: APIX2.5T PO (13:22)
[2021-01-08] MEDS ORDERED: IPRA3AMP23 IH (13:22)
[2021-01-08] MEDS ORDERED: EPOE1VIA12 SQ (13:22)
[2021-01-08] MEDS ORDERED: ACET1OOV6 HHN (13:22)
[2021-01-08] MEDS ORDERED: DILT-32 PO (13:22)
[2021-01-08 13:25] LABS: ALBUMIN 2.8 g/dL (3.4-5.0); BILIRUBIN,DIRECT 0.3 mg/dL (0.0-0.2); BILIRUBIN,TOTAL 0.8 mg/dL (0.2-1.0); TOTAL PROTEIN, SERUM 7.3 g/dL (6.4-8.2)
--- NOTE | 2021-01-08 14:27 | NUR ---
received bed from nursing supervisor rework. patient going to 116-2.
[2021-01-08] MEDS ORDERED: ACETAMINOPHEN 325 MG TABLET PO PRN ×2 (14:30→15:15)
[2021-01-08] MEDS ORDERED: Medication Not On Formulary EA (Ipratropium/Albuterol Sulfate (Duoneb 2.5-0.5 Mg/3 Ml So IH PRN (14:30)
[2021-01-08] MEDS ORDERED: MORPHINE SULFATE INJ 2 MG/ML DISP.SYRIN IV PRN ×2 (14:30→15:15)
[2021-01-08] MEDS ORDERED: EPOETIN ALFA (10,000 UNIT) 10,000 UNIT/ML VIAL SQ SCH (14:30)
[2021-01-08] MEDS ORDERED: MAG HYDROX/AL HYDROX/SIMETH 30 ML UDC PO PRN ×2 (14:30→15:15)
[2021-01-08] MEDS ORDERED: Z GUARD REMEDY 2 OZ OINT TP PRN ×2 (14:30→15:15)
[2021-01-08] MEDS ORDERED: BISACODYL SUPP (10 MG) 10 MG/SUPP.RECT SUPP.RECT RC PRN ×2 (14:30→15:15)
[2021-01-08] MEDS ORDERED: diphenhydrAMINE HCL 25 MG CAPSULE PO PRN ×2 (14:30→15:15)
[2021-01-08] MEDS ORDERED: HYDROCODONE/APAP 5/325MG TABLET PO PRN ×2 (14:30→15:15)
[2021-01-08] MEDS ORDERED: hydrALAZINE HCL 10 MG TABLET PO PRN (14:30)
--- NOTE | 2021-01-08 15:01 | NUR ---
REPORT GIVEN TO MEREDITH FISCHER FOR [facility]
--- NOTE | 2021-01-08 15:30 | NUR ---
PATIENT RECEIVED IN BED,ON PRESCRIBED VENT TRACH SETTINGS AC 14, TV 600, FIO2 30%, PEEP 5. NO RESPIRATORY DISTRESS OR SOB. PATIENT IS ALERT AND ORIENTED X 3. PATIENT ON MONITOR SHOWING AFIB WITH RVR 140s. PT REPORTED TO HAVE HD TODAY, PARACENTESIS POSSIBLY TOMORROW. PATIENT ON CCHO 60 GM DIET. PT HAS RAC 20 INTACT, NO SIGNS OF INFECTION OR INFILTRATION. ALL SAFETY MEASURES IN PLACE. WILL CONTINUE TO MONITOR
[2021-01-08 16:00] VITALS: BP 144/83
[2021-01-08] MEDS ORDERED: ONDANSETRON 4 MG TAB.RAPDIS PO PRN (16:00)
[2021-01-08] MEDS ORDERED: IPRATROPIUM NEB FS 0.5 MG/2.5 ML AMPUL.NEB NEB PRN (16:30)
[2021-01-08] MEDS ORDERED: ALBUTEROL FS 2.5 MG/0.5 ML VIAL.NEB NEB PRN (16:30)
[2021-01-08] MEDS: PROSTAT (PYXIS) 30 ML UDC PO SCH (17:00)
[2021-01-08] MEDS ORDERED: ALPRAZOLAM 0.25 MG TABLET PO SCH (17:00)
[2021-01-08] MEDS ORDERED: CALCIUM CARBONATE 500 MG TAB.CHEW PO SCH (17:00)
[2021-01-08] MEDS ORDERED: APIXABAN 2.5 MG TABLET PO SCH (17:00)
[2021-01-08] MEDS: SEVELAMER CARBONATE 800 MG POWD.PACK PO SCH (17:17)
[2021-01-08] MEDS: CALCIUM CARBONATE 500 MG TAB.CHEW PO SCH (17:18)
--- NOTE | 2021-01-08 17:18 | NUR ---
PATIENT REFUSES RENVELA, TUMS, AND PROSTAT MED. HD RN IN ROOM NOW, CONSENT SIGNED. PATIENT STATES HE WISHES TO BE DC AFTER HD SESSION IF PARACENTESIS UNABLE TO BE DONE TODAY, ASHLEY DENTON
[2021-01-08] MEDS ORDERED: SEVELAMER CARBONATE 800 MG POWD.PACK PO SCH (18:00)
--- NOTE | 2021-01-08 19:00 | NUR ---
PET HANDLER REPORTS 1100 ML OUTPUT. NO ACUTE CHANGES FROM ADMISSION TODAY, ALL SAFETY MEASURES IN PLACE, REPORT GIVEN TO ONCOMING RN FOR [facility]
--- NOTE | 2021-01-08 19:30 | NUR ---
RN NOTES RECEIVED PT IN BED. JUST HAD DIALYSIS WITH 1100 OUTPUT. DRESSING ON LEFT ARM AV SHUNT INTACT, NO SIGNS OF BLEEDING NOTED. PT ALERT AND ORIENTED X4. DENIES ANY PAIN AT THIS TIME. NO DISTRESS NOTED. PT AFIB WITH HR OF 140S ON TELE MONITOR PER AM NURSE, AWARE. ALL SAFETY MEASURES IMPLEMENTED PER PROTOCOL.
[2021-01-08 20:00] VITALS: BP 99/72
[2021-01-08] MEDS ORDERED: clonazePAM 0.5 MG TABLET PO SCH ×2 (21:00)
[2021-01-08] MEDS: CARVEDILOL 12.5 MG TABLET PO SCH (21:00)
[2021-01-08] MEDS: LEVETIRACETAM (250 MG) 250 MG TABLET PO SCH (21:59)
[2021-01-08] MEDS: SENNOSIDES 8.6 MG TABLET PO SCH (22:00)
[2021-01-08] MEDS ORDERED: SENNOSIDES 8.6 MG TABLET PO SCH (22:00)
[2021-01-08] MEDS: ALPRAZOLAM 0.25 MG TABLET PO SCH (22:01)
[2021-01-08] MEDS: APIXABAN 2.5 MG TABLET PO SCH (22:01)
[2021-01-09] VITALS: BP 113/60
--- NOTE | 2021-01-09 06:30 | NUR ---
RN NOTE PT SIGNED CONSENT FOR PARACENTESIS. VERBALIZED UNDERSTANDING.
--- NOTE | 2021-01-09 06:51 | NUR ---
RN NOTES PT REMAIN IN BED. TOLERATING VENT SETTINGS, SUCTIONED NEEDED. PT ABLE TO MAKE NEEDS KNOWN. CALL LIGHT WITHIN REACH AT ALL TIMES, NEEDS ATTENDED. PT CAN BE IMPATIENT AT TIMES. CONTINUE ON TELE MONITORING, AFIB/AFLUTTER WITH HR OF 70S. PT DENIES SOB OR PAIN. IV ON LEFT RAC REMAIN PATENT AND INTACT. ALL SAFETY MEASURES IMPLEMENTED PER PROTOCOL. WILL ENDORSE TO NEXT SHIFT NURSE FOR [facility].
[2021-01-09] MEDS: PANTOPRAZOLE 40 MG TABLET.DR PO SCH (07:30)
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
[2021-01-09 08:00] VITALS: BP 143/58
[2021-01-09] MEDS: SEVELAMER CARBONATE 800 MG POWD.PACK PO SCH ×3 (08:00→18:00)
[2021-01-09] MEDS ORDERED: ALBUMIN 25% 25 GM in PREMIX 1 EA IV SCH (08:00)
[2021-01-09] MEDS: CALCIUM CARBONATE 500 MG TAB.CHEW PO SCH ×4 (08:00→18:40)
[2021-01-09] MEDS ORDERED: ALBUMIN 25% 25 GM in PREMIX 1 EA IV ONE (08:01)
[2021-01-09] MEDS ORDERED: LORAZEPAM INJ 2 MG/ML VIAL IV ONE (08:30)
--- NOTE | 2021-01-09 08:30 | NUR ---
Patiient noted with agitation and throwing iobjects at the floor. Noted with making fists and using foul language with staff. Patient approached in a calm manner and re oriented but to no avail. Refused anti anxiety medication along with all other medications. Requested milk, received order from Dr Ortega to provide milk x 1 due to renal diet.Kitchen made aware.
--- NOTE | 2021-01-09 08:56 | NUR ---
PATIENT AGITATED REFUSING MEDS AND TREATMENT,USING F WORDS TO STAFF AND THROW WATER ON FLOOR. DEMANDING TO HAVE MILK.MD MADE AWARE OF BEHAVIOUR ORDERED PRN ATIVAN IVP.
--- NOTE | 2021-01-09 08:58 | NUR ---
CONNIE SENIOR LOAN PROCESSOR AND REPORTS DEVELOPER AT BEDSIDE AND EXPLAINING IMPORTANCE OF PROCEDURE AND TAKIG HIS MIDS. ALSO OBTAINED ORDER FROM RENAL OK TO GIVE MILK X1.PATIENT VERBALIZED TO STAFF i WILL EILEEN YOU ",PATIENT WANTED TO BE DISCHARGE. PER SENIOR LOAN PROCESSOR CONNIE HOLD OFF ON ATIVAN.PLAN TO DISCHARGE PT. IF CONTINUE TO REFUSED TREATMENT AND MEDS.WILL CONTINUE TO FOLLOW UP.
[2021-01-09] MEDS: PROSTAT (PYXIS) 30 ML UDC PO SCH ×2 (09:00→17:00)
[2021-01-09] MEDS: DILTIAZEM HCL CD 120 MG PO SCH ×2 (09:00→18:15)
[2021-01-09] MEDS ORDERED: DILTIAZEM HCL CD 120 MG PO SCH (09:00)
[2021-01-09] MEDS: ALPRAZOLAM 0.25 MG TABLET PO SCH ×2 (09:00→20:06)
[2021-01-09] MEDS ORDERED: CINACALCET HCL 30 MG TABLET PO SCH (09:00)
[2021-01-09] MEDS ORDERED: ASCORBIC ACID 250 MG TABLET PO SCH ×2 (09:00)
[2021-01-09] MEDS: LEVETIRACETAM (250 MG) 250 MG TABLET PO SCH ×2 (09:00→20:06)
[2021-01-09] MEDS ORDERED: DOCUSATE SODIUM 100 MG CAPSULE PO SCH (09:00)
[2021-01-09] MEDS: CARVEDILOL 12.5 MG TABLET PO SCH ×3 (09:00→20:07)
[2021-01-09] MEDS: PAROXETINE HCL 20 MG TABLET PO SCH (09:00)
[2021-01-09] MEDS: CHOLECALCIFEROL 1,000 UNIT TABLET (VIT D3) PO SCH (09:00)
[2021-01-09] MEDS: CINACALCET HCL 30 MG TABLET PO SCH (09:00)
[2021-01-09] MEDS: VIT B CMPLX 3/FA/VIT C/BIOTIN 1 TAB TABLET PO SCH (09:00)
[2021-01-09] MEDS: DOCUSATE SODIUM 100 MG CAPSULE PO SCH (09:00)
[2021-01-09] MEDS: APIXABAN 2.5 MG TABLET PO SCH (09:00)
--- NOTE | 2021-01-09 09:40 | NUR ---
Patient refused all his medications. Educated and informed x 3 regarding importance of cardiac medications but refused.
--- NOTE | 2021-01-09 09:52 | NUR ---
patient calm now still refusing meds treatment md aware.ativan wasted w/ another rn.
--- NOTE | 2021-01-09 09:55 | NUR ---
patient refusing discharge photo also,per md will send back to snf,flip erwin made aware.
[2021-01-09] MEDS ORDERED: ALBUTEROL FS 2.5 MG/0.5 ML VIAL.NEB NEB PRN (10:30)
--- NOTE | 2021-01-09 10:40 | NUR ---
WOUND CARE CONSULT: REVIEWED CHART, NURSING DOCUMENTATION AND PHOTOS WHICH INDICATE SACRAL SCARRING WHICH EXTENDS TO BUTTOCKS AND LOWER LEG DISCOLORATION, PRESENT ON ADMISSION. RECOMMENDATIONS MADE FOR SKIN PROTECTION. DISCUSSED WITH NURSING STAFF. MD IN AGREEMENT WITH PLAN OF CARE.
--- NOTE | 2021-01-09 11:00 | NUR ---
PATIENT REFUSED MORPHINE FOR PAIN. Wasted with RN marking room supervisor
[2021-01-09 12:00] VITALS: BP 153/82
--- NOTE | 2021-01-09 13:27 | NUR ---
REGARDING PARACENTESIS, PATIENT HAD ELIQUIS ON 01/08 AT 21.00 PM, PER RADIOLOGIDT NEEDS TO HOLD THE ELIQUIS FOR 4 DAYS, DUE TO HIGH CREATININE, RN AWARE , WILL FOLLOW UP
--- NOTE | 2021-01-09 15:13 | NUR ---
PATIENT DONE WITH HEMODIALYSIS,STILL REFUSING TO TAKE HIS MEDS AND TREATMENT ASKING WHAT TIME AMBULNCE COMING.RODY ALLIED HEALTH PROFESSIONAL NOTIFIED PT. INSISTED TO BE DISCHARGE.PER OK TO DC HOLD BLOOD THINNERS AND WILL DO PARACENTESIS OUTPATIENT.
[2021-01-09 16:00] VITALS: BP 151/58
--- NOTE | 2021-01-09 18:19 | NUR ---
took am meds still tachycardic, aware,flip erwin aware will put patient in willl call.
--- NOTE | 2021-01-09 18:19 | NUR ---
paramedics unable to take pt. hr 140's explained to pat. need to take his meds.
--- NOTE | 2021-01-09 18:30 | NUR ---
Patient was arranged to go to rehab but unable to due to HR above 140's . Patient was in 70's and 80's throughout shift. Received order to give the am dose that patient had refused for coreg and diltiazem. Patient teaching done and patient took medication. Patient still yelling for no apparent reason at staff. Redirected several times to no avail. Patient c/o pain and nausea and noted with one episode of emesis which was food particles.Patient was provided zofran and morphine with good effect. No further episode of emesis noted. Endorsed to next shift to follow up regarding pain assessment. Nurse made aware regarding holding eliquis or any anticoagulants for paracentesis. Bed is in lowest and locked position. Call light within reach.
--- NOTE | 2021-01-09 19:19 | NUR ---
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
[2021-01-09 20:00] VITALS: BP 176/121
[2021-01-09] MEDS: hydrALAZINE HCL 10 MG TABLET PO PRN ×2 (20:47→23:11)
--- NOTE | 2021-01-09 21:09 | NUR ---
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 PT BUT PT BP AND HR IS STILL HIGH WITH LATEST BP 166/120 AND HR OF 146, PT IS STILL AGITATED AND KEEP ON SHOUTING AND CURSING THE NURSES AND HOSPITAL STAFF, TRY TO GIVE PRN HYDRALAZINE TO HELP THE BP GO DOWN BUT PT TOSS IT OUT AND REFUSED TO TAKE IT, MYSELF AND EMT STAFF TRY TO CALM THE PT AND EXPLAIN TO HIM THAT HE NEEDS TO CALM DOWN AND TAKE HIS MEDICATION TO BE ABLE TO HIM TO RETURN TO THE FACILITY BECAUSE THE FACILITY WILL NOT ACCEPT HIM IF HIS BLOOD PRESSURE AND HR IS STILL HIGH BUT PT IS NOT LISTENING TO THE EXPLANATION AND KEEP ON TELLING THE F WORDS AND HE SAID HE DONT CARE ABOUT ANYTHING HE JUST WANT TO GO BACK TO FACILITY, EMT STAFF TALK TO ME AND THEY SAID THEY CANNOT BRING PT WITH THAT HIGH BLOOD PRESSURE AND HR, INFORM THE MARIELOS LOPES NOVELTY TWISTER TENDER ABOUT IT AND AGREE TO KEEP THE PT FOR NOW AND DISCHARGE HIM TOMMOROW, CALL SERENA SANCHEZ RN AND INFORMED THEM ABOUT THE HOLD OF PT DISCHARGE FOR NOW WILL CONT TO MONITOR THE PT
[2021-01-09] MEDS: SENNOSIDES 8.6 MG TABLET PO SCH (21:44)
[2021-01-10] VITALS: BP 189/110
--- NOTE | 2021-01-10 01:00 | NUR ---
PT REFUSED TO RECHECKED BLOOD PRESSURE EXPLAINED RISK AND BENEFITS BUT KEEP ON REFUSING AND SAYING F WORDS TO ME, HE ALSO SAID THAT HE WANT TO SLEEP AND I KEEP ON BOTHERING HIM FOR NON SENSE,
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
[2021-01-10 04:00] VITALS: BP 137/87
--- NOTE | 2021-01-10 05:50 | NUR ---
PT REFUSED BLOOD DRAW, YELLING TO THE CLINIC SUPERVISOR SAYING HE DONT LIKE TO BE POKE, RISK AND BENEFITS WAS EXPLAINED TO THE PT BUT STILL REFUSING CHARGE NURSE MADE AWARE AN WILL INFORM ALSO
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
[2021-01-10 08:00] VITALS: BP 134/91
[2021-01-10] MEDS: CALCIUM CARBONATE 500 MG TAB.CHEW PO SCH ×2 (08:15→13:11)
[2021-01-10] MEDS: DILTIAZEM HCL CD 120 MG PO SCH (08:16)
[2021-01-10] MEDS: CINACALCET HCL 30 MG TABLET PO SCH (08:17)
[2021-01-10] MEDS: CARVEDILOL 12.5 MG TABLET PO SCH (08:17)
[2021-01-10] MEDS: LEVETIRACETAM (250 MG) 250 MG TABLET PO SCH (08:17)
[2021-01-10] MEDS: CHOLECALCIFEROL 1,000 UNIT TABLET (VIT D3) PO SCH (08:17)
[2021-01-10] MEDS: DOCUSATE SODIUM 100 MG CAPSULE PO SCH (08:17)
[2021-01-10] MEDS: PAROXETINE HCL 20 MG TABLET PO SCH (08:17)
[2021-01-10] MEDS: ALPRAZOLAM 0.25 MG TABLET PO SCH (08:18)
[2021-01-10] MEDS: PANTOPRAZOLE 40 MG TABLET.DR PO SCH (08:18)
[2021-01-10] MEDS: SEVELAMER CARBONATE 800 MG POWD.PACK PO SCH ×2 (08:18→13:11)
[2021-01-10] MEDS: VIT B CMPLX 3/FA/VIT C/BIOTIN 1 TAB TABLET PO SCH (08:18)
[2021-01-10] MEDS: PROSTAT (PYXIS) 30 ML UDC PO SCH (08:30)
[2021-01-10] MEDS ORDERED: ALBUMIN 25% 12.5 GM in PREMIX 1 EA IV PRN (08:30)
[2021-01-10] MEDS ORDERED: ASCORBIC ACID 500 MG TABLET PO SCH (09:00)
[2021-01-10 11:02] VITALS: BP 163/62
[2021-01-10] MEDS: hydrALAZINE HCL 10 MG TABLET PO PRN (11:02)
--- NOTE | 2021-01-10 13:04 | NUR ---
CALLED [facility] TO GIVE REPORT FOR PATIENT SPOKE WITH MEREDITH ACHARYA PATIENT WILL BE GOING TO ROOM 208A FAMILY MEMBER MOTHER, AWARE. WILL CONTINUE TO MONITOR.
--- NOTE | 2021-01-10 14:00 | NUR ---
PATIENT REFUSED DISHARGE PHOTOS OF HIS LEFT LEG AND SACRAL AREA.
--- NOTE | 2021-01-10 14:05 | NUR ---
DISCHARGE NOTES PATIENT VITAL SIGNS ARE WITHIN NORMAL LIMIT AFEBRILE WITH NO SIGNS OF DISTRESS ON MECHANICAL VENTILATOR. DISCHARGE PAPERWORK WAS SIGNED AND REVIEWED WITH PATIENT. BELONGING LIST WAS COMPLETED AND SIGNED. IV ON RAC WAS REMOVED WITH NO BLEEDING AND COVERED. 2 PHYSIC[facility] AND RT ACCOMPANIED THE PATIENT OUT VIA GURNEY.
[2021-01-10] MEDS ORDERED: EPOETIN ALFA (10,000 UNIT) 10,000 UNIT/ML VIAL SQ SCH (15:00)
== END 2021-01-10 14:05 | DRG 291 ==
LOC: ER 11:34 → TELE1 15:11
PROVIDERS: ADMIT Nurse Practitioner Acute Care; ATTEND Nurse Practitioner Acute Care
PROC: 5A1945Z Respiratory Ventilation, 24-96 Consecutive Hours (ICD-10-PCS; principal; 2021-01-08)
PROC: 5A1D70Z Performance of Urinary Filtration, Intermittent, Less than 6 Hours Per Day (ICD-10-PCS; 2021-01-08)
PROC: 0W9G3ZZ Drainage of Peritoneal Cavity, Percutaneous Approach (ICD-10-PCS; 2021-01-10)
DX: I13.2 Hypertensive heart and chronic kidney disease with heart failure and with stage 5 chronic kidney disease, or end stage renal disease (principal); N18.6 End stage renal disease; Z99.11 Dependence on respirator [ventilator] status; I69.354 Hemiplegia and hemiparesis following cerebral infarction affecting left non-dominant side; J96.10 Chronic respiratory failure, unspecified whether with hypoxia or hypercapnia; D68.59 Other primary thrombophilia; I48.92 Unspecified atrial flutter; I50.32 Chronic diastolic (congestive) heart failure; E44.0 Moderate protein-calorie malnutrition; R18.8 Other ascites; Z93.0 Tracheostomy status; Z99.2 Dependence on renal dialysis; G40.909 Epilepsy, unspecified, not intractable, without status epilepticus; Z93.1 Gastrostomy status; R13.10 Dysphagia, unspecified; E78.5 Hyperlipidemia, unspecified; I48.91 Unspecified atrial fibrillation; Z91.19 Patient's noncompliance with other medical treatment and regimen; Z79.01 Long term (current) use of anticoagulants; F32.9 Major depressive disorder, single episode, unspecified; J44.9 Chronic obstructive pulmonary disease, unspecified; E11.22 Type 2 diabetes mellitus with diabetic chronic kidney disease; Z79.51 Long term (current) use of inhaled steroids; Z79.899 Other long term (current) drug therapy; F41.9 Anxiety disorder, unspecified; E66.01 Morbid (severe) obesity due to excess calories; Z74.09 Other reduced mobility; K76.0 Fatty (change of) liver, not elsewhere classified; K74.60 Unspecified cirrhosis of liver; D63.8 Anemia in other chronic diseases classified elsewhere; K21.9 Gastro-esophageal reflux disease without esophagitis
CPT/HCPCS: 31720; 36415; 71045-TC; 76700-TC; 76942-TC; 80048-TC; 80076-TC; 85025-TC; 87081-TC; 90935-TC; 94002-TC; 94003-TC; 94760-TC; 94762-TC; 94799-TC; A4216; G0378; J2060; J2270; P9047; Q0162; Q0163; U0003

== ENCOUNTER 2021-03-19 11:14 | Outpatient (CLI) | payer MEDICARE, MEDICAID ==
[~2021-03-19 11:14] MED LIST changes: +ACET-868 PO; +ACET1OOV6 HHN; +APIX2.5T PO; -APIX5TAB PO; +ASCO-495 PO; +CALC500T63 PO; +DILT-32 PO; -DILT240C88 PO; +DIPH25CA51 PO; +EPOE1VIA12 SQ; -FERR325T23 PO; -IPRA12.9 IH; +IPRA3AMP23 IH; -LEVA15HF4 IH; -PANT40TA2 PO
== END 2021-03-19 23:59 | disposition home or self-care (01) ==
LOC: US 11:14
PROVIDERS: ATTEND Internal Medicine Nephrology
DX: R18.8 Other ascites (principal)
CPT/HCPCS: 76942-TC